=== PATIENT | female | born 1985 | race African-American/Black ===

== ENCOUNTER 2018-06-22 18:02 | Observation (INO) | payer BC ==
--- NOTE | 2018-06-22 18:19 | PDOC ---
Rapid Medical Evaluation Chief Complaint: Vaginal Bleeding Time Seen by Provider: 06/22/18 18:05 Medical Evaluation: Allergies Allergy/AdvReac Type Severity Reaction Status Date / Time No Known Allergies Allergy Verified 06/22/18 18:16 06/22/18 18:18 Pt c/o: heavy vag bleeding since last evening, hx fibroids, recent d& c 6 weeks ago. Has not had menses since procedure pt on brief exam: BRB on sanitary napkin, vss pt ordered for: labs, iv, urine pt to proceed to the ED Discharge Disposition - Diagnosis Vagina bleeding - Referrals - Patient Instructions - Post Discharge Activity
[2018-06-22 19:34] LABS: BASO % 0.4 % (0-2.0); EOS % 1.2 % (0-4.5); HEMATOCRIT 24.4 % (32.4-45.2); HEMOGLOBIN 8.5 GM/dL (10.7-15.3); LYMPH % 39.9 % (8-40); MCH 28.8 pg (25.7-33.7); MCHC 34.7 g/dl (32.0-36.0); MEAN CELL VOLUME 83.1 fl (80-96); MEAN PLT VOLUME 7.4 fl (7.5-11.1); MONO % 5.7 % (3.8-10.2); NEUT % 52.8 % (42.8-82.8); PLATELET COUNT 332 K/MM3 (134-434); RBC 2.94 M/mm3 (3.60-5.2); WHITE BLOOD COUNT 7.9 K/mm3 (4.0-10.0)
[2018-06-22] MEDS ORDERED: SODIUM CHLORIDE 1,000 ML IV STA (21:13)
--- NOTE | 2018-06-22 21:39 | PDOC ---
History of Present Illness - General History Source: Patient Exam Limitations: No Limitations - History of Present Illness Initial Comments: 06/22/18 21:41 The patient is a 33 year old female with a history of fibroids who presents to the emergency department for evaluation of vaginal bleeding. Patient reports profuse vaginal bleeding with associated dizziness since 2pm today. She reports going through 2 diapers with clots. Patient had DNC on due to fetus having heart problems. She states she followed with Dr. Curry on 06/13 in regards to history of fibroids. Patient states she is scheduled to have surgery in June for fibroids. The patient denies chest pain, shortness of breath, headache, fevers, and chills. Allergies: No known allergies. Social History: No reported alcohol, cigarette, or drug use. 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 <Jessica Upton - Last Filed: 06/23/18 00:32> <Alba Reyes - Last Filed: 06/23/18 00:56> - General Chief Complaint: Vaginal Bleeding Stated Complaint: Vaginal Bleeding Time Seen by Provider: 06/22/18 18:05 Past History <Jessica Upton - Last Filed: 06/23/18 00:32> - Past Medical History COPD: No HTN: No Other medical history: FIBROIDS - Immunization History Immunization Up to Date: Yes - Suicide/Smoking/Psychosocial Hx Smoking History: Never smoked Hx Alcohol Use: No Drug/Substance Use Hx: No Substance Use Type: None <Alba Reyes - Last Filed: 06/23/18 00:56> - Past Medical History Allergies/Adverse Reactions: Allergies Allergy/AdvReac Type Severity Reaction Status Date / Time No Known Allergies Allergy Verified 06/22/18 18:16 Home Medications: Ambulatory Orders NK [No Known Home Medication] 06/18/16 Review of Systems - Review of Systems Able to Perform ROS?: Yes Comments:: CONSTITUTIONAL: Absent: fever, no chills, no fatigue EYES: Absent: visual changes ENT: Absent: ear pain, no sore throat CARDIOVASCULAR: Absent: chest pain, no palpitations RESPIRATORY: Absent: cough, no SOB GI: Absent: (+)cramping abdominal pain. (+)nausea. (+)vomiting. no constipation, no diarrhea GENITOURINARY: (+)vaginal bleeding Absent: dysuria, no frequency, no hematuria MUSKULOSKELETAL: Absent: back pain, no arthralgia, no myalgia SKIN: Absent: rash NEURO: +dizziness Absent: headache <Jessica Upton - Last Filed: 06/23/18 00:32> *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 - Vital Signs Last Vital Signs Temp Pulse Resp BP Pulse Ox 98.5 F 105 H 16 144/92 100 06/22/18 18:16 06/22/18 18:16 06/22/18 18:16 06/22/18 18:16 06/22/18 18:16 - 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 Comments: GENERAL: Well developed, well nourished. Awake and alert. No acute distress. HEENT: Normocephalic, atraumatic. PERRLA, EOMI. No conjunctival pallor. Sclera are non- icteric. Moist mucous membranes. CARDIOVASCULAR: (+)Tachycardic. No murmurs, rubs, or gallops. Distal pulses are 2+ and symmetric. PULMONARY: No evidence of respiratory distress. Lungs clear to auscultation bilaterally. No wheezing, rales or rhonchi. ABDOMINAL: Soft. Flat. Non-tender. Pelvic: (+)heavy vaginal bleeding with large clots. MUSCULOSKELETAL Normal range of motion at all joints. No bony deformities or tenderness. No CVA tenderness. EXTREMITIES: No cyanosis. No clubbing. No edema. No calf tenderness. SKIN: Warm and dry. Normal capillary refill. No rashes. No jaundice. NEUROLOGICAL: Alert, awake, appropriate. Cranial nerves 2-12 intact. No deficits to light touch and temperature in face, upper extremities and lower extremities. No motor deficits in the in face, upper extremities and lower extremities. PSYCHIATRIC: Cooperative. Good eye contact. Appropriate mood and affect. <Jessica Upton - Last Filed: 06/23/18 00:32> - Vital Signs Last Vital Signs Temp Pulse Resp BP Pulse Ox 98.5 F 105 H 16 144/92 100 06/22/18 18:16 06/22/18 18:16 06/22/18 18:16 06/22/18 18:16 06/22/18 18:16 <Alba Reyes - Last Filed: 06/23/18 00:56> ED Treatment Course - LABORATORY CBC & Chemistry Diagram: 06/22/18 23:34 06/22/18 23:34 - ADDITIONAL ORDERS Additional order review: Laboratory Results 06/22/18 19:20 Blood Type O POSITIVE Antibody Screen Negative 06/22/18 19:20 RBC 2.94 L MCV 83.1 MCHC 34.7 RDW 15.0 D MPV 7.4 L D Neutrophils % 52.8 D Lymphocytes % 39.9 D Monocytes % 5.7 Eosinophils % 1.2 Basophils % 0.4 <Jessica Upton - Last Filed: 06/23/18 00:32> - LABORATORY CBC & Chemistry Diagram: 06/22/18 23:34 06/22/18 23:34 - ADDITIONAL ORDERS Additional order review: Laboratory Results 06/22/18 19:20 Blood Type O POSITIVE Antibody Screen Negative 06/22/18 19:20 RBC 2.94 L MCV 83.1 MCHC 34.7 RDW 15.0 D MPV 7.4 L D Neutrophils % 52.8 D Lymphocytes % 39.9 D Monocytes % 5.7 Eosinophils % 1.2 Basophils % 0.4 <Alba Reyes - Last Filed: 06/23/18 00:56> Medical Decision Making - Medical Decision Making 06/23/[address] Garcia at 00:32. <Jessica Upton - Last Filed: 06/23/18 00:32> - Medical Decision Making 06/23/18 00:51 Patient is feeling better. The patient has had two diaper changes, but she is now stable with no significant vaginal bleeding at this moment Orthostatics were done and supine her pulse was 87, and her blood pressure was 119/84. Vital signs seated . The pulse is 100 and her blood pressure is 120/97 Patient has had no further vomiting. repeat cbc shows hbg= 7 and hct=21 We'll transfuse patient with packed RBCs and admit MedSurg. Dr. Garcia will see the pt in the morning <Alba Reyes - Last Filed: 06/23/18 00:56> *DC/Admit/Observation/Transfer - Attestations Scribe Attestion: Documentation prepared by Jessica Upton, acting as rn medical inpatient services for Alba Reyes MD. <Jessica Upton - Last Filed: 06/23/18 00:32> - Discharge Dispostion Decision to Admit order: Yes <Alba Reyes - Last Filed: 06/23/18 00:56> Diagnosis at time of Disposition: Fibroids, submucosal, Metrorrhagia Anemia Qualifiers: Anemia type: other cause Other causes of anemia: other cause, not classified Qualified Code(s): D64.89 - Other specified anemias
[2018-06-22 23:42] LABS: BASO % 0.3 % (0-2.0); EOS % 0.8 % (0-4.5); HEMATOCRIT 21.3 % (32.4-45.2); HEMOGLOBIN 7.4 GM/dL (10.7-15.3); LYMPH % 27.7 % (8-40); MCHC 34.6 g/dl (32.0-36.0); MEAN CELL VOLUME 83.7 fl (80-96); MEAN PLT VOLUME 7.7 fl (7.5-11.1); MONO % 5.3 % (3.8-10.2); NEUT % 65.9 % (42.8-82.8); PLATELET COUNT 273 K/MM3 (134-434); RBC 2.55 M/mm3 (3.60-5.2); RDW 14.8 % (11.6-15.6); WHITE BLOOD COUNT 7.5 K/mm3 (4.0-10.0)
[2018-06-23 00:17] LABS: ALBUMIN 2.8 g/dl (3.4-5.0); ALK PHOS 67 U/L (45-117); ANION GAP 7 MMOL/L (8-16); BILIRUBIN,TOTAL 0.2 mg/dL (0.2-1); BLOOD UREA NITROGEN 24 mg/dL (7-18); CALCIUM 8.4 mg/dL (8.5-10.1); CHLORIDE 111 mmol/L (98-107); CO2 23 mmol/L (21-32); CREATININE 1.1 mg/dL (0.55-1.3); GLUCOSE,RANDOM 88 mg/dL (74-106); POTASSIUM 3.9 mmol/L (3.5-5.1); SGOT/AST 13 U/L (15-37); SGPT/ALT 11 U/L (13-61); SODIUM 140 mmol/L (136-145); TOT PROT 6.4 g/dl (6.4-8.2)
--- NOTE | 2018-06-23 02:32 | HP ---
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 Tachycardic to 105 on presentation, received 1L NS bolus in ED. T&S and 2U PRBCs ordered in ED. Pt reports elective hysterectomy scheduled for June. OBGYN department will evaluate in AM and pursue outpatient surgery. ER course was notable for: (1) Hb 7.4 (2) (3) Recent Travel: PAST MEDICAL HISTORY: As per HPI PAST SURGICAL HISTORY: As per HPI Social History: Smoking: none Alcohol: none Drugs: none Family History: Allergies No Known Allergies Allergy (Verified 06/22/18 18:16) HOME MEDICATIONS: Home Medications Medication Instructions Recorded NK [No Known Home Medication] 06/18/16 REVIEW OF SYSTEMS As per HPI PHYSICAL EXAMINATION Vital Signs - 24 hr 06/22/18 06/22/18 06/23/18 18:16 21:40 01:38 Temperature 98.5 F 99 F Pulse Rate 105 H Pulse Rate [ 82 Apical] Pulse Rate [ 100 H Sitting] Pulse Rate [ 87 Supine] Respiratory 16 18 Rate Blood Pressure 144/92 Blood Pressure 113/75 [Right Arm] Blood Pressure 120/97 [Sitting] Blood Pressure 119/84 [Supine] O2 Sat by Pulse 100 100 Oximetry (%) 06/23/18 06/23/18 01:58 02:13 Temperature 99 F 99 F Pulse Rate Pulse Rate [ 80 78 Apical] Pulse Rate [ Sitting] Pulse Rate [ Supine] Respiratory 18 18 Rate Blood Pressure Blood Pressure 110/68 112/72 [Right Arm] Blood Pressure [Sitting] Blood Pressure [Supine] O2 Sat by Pulse 100 100 Oximetry (%) GENERAL: A&O x 3, NAD HEAD: NC/AT EYES: PERRLA, EOMI EARS, NOSE, THROAT: MMM NECK: Normal range of motion, supple without lymphadenopathy, JVD, or masses. LUNGS: CTA b/l HEART: RRR no m/r/g ABDOMEN: +bs, soft, TTP in LLQ MUSCULOSKELETAL: Normal range of motion at all joints. No bony deformities or tenderness. No CVA tenderness. UPPER EXTREMITIES: 2+ pulses, warm, well-perfused. No cyanosis. No clubbing. No peripheral edema. LOWER EXTREMITIES: 2+ pulses, warm, well-perfused. No calf tenderness. No peripheral edema. NEUROLOGICAL: pitch gatherer, motor, sensory systems w/o focal deficits PSYCHIATRIC: Cooperative. Good eye contact. Appropriate mood and affect. SKIN: Warm, dry, normal turgor, no rashes or lesions noted, normal capillary refill. Laboratory Results - last 24 hr 06/22/18 06/22/18 06/22/18 19:20 19:20 23:34 WBC 7.9 RBC 2.94 L Hgb 8.5 L Hct 24.4 L D MCV 83.1 MCH 28.8 D MCHC 34.7 RDW 15.0 D Plt Count 332 D MPV 7.4 L D Absolute Neuts (auto) 4.1 Neutrophils % 52.8 D Lymphocytes % 39.9 D Monocytes % 5.7 Eosinophils % 1.2 Basophils % 0.4 Nucleated RBC % 0 Sodium Potassium Chloride Carbon Dioxide Anion Gap BUN Creatinine Creat Clearance w eGFR Random Glucose Calcium Total Bilirubin AST ALT Alkaline Phosphatase Total Protein Albumin Serum , Qual Negative Blood Type O POSITIVE Antibody Screen Negative Crossmatch 06/22/18 06/22/18 06/22/18 23:34 23:34 23:34 WBC 7.5 RBC 2.55 L Hgb 7.4 L Hct 21.3 L MCV 83.7 MCH 29.0 MCHC 34.6 RDW 14.8 Plt Count 273 MPV 7.7 Absolute Neuts (auto) 4.9 Neutrophils % 65.9 D Lymphocytes % 27.7 D Monocytes % 5.3 Eosinophils % 0.8 Basophils % 0.3 Nucleated RBC % 0 Sodium 140 Potassium 3.9 Chloride 111 H Carbon Dioxide 23 Anion Gap 7 L BUN 24 H Creatinine 1.1 Creat Clearance w eGFR 56.52 Random Glucose 88 Calcium 8.4 L Total Bilirubin 0.2 AST 13 L ALT 11 L Alkaline Phosphatase 67 Total Protein 6.4 Albumin 2.8 L Serum , Qual Blood Type O POSITIVE Antibody Screen Negative Crossmatch See Detail ASSESSMENT/PLAN: 33 y/o F w/ PMHx fibroids, 6 weeks s/p D&C, p/w heavy vaginal bleeding and symptomatic anemia #anemia -given time since D&C, unlikely to be related to procedure, most likely fibroid bleeding -definitive treatment is hysterectomy, to be performed outpatient per OBGYN -PRBC transfusion had started before labs for anemia w/u could be obtained, therefore retics/iron studies would be unrevealing at this time -PT/PTT/INR ordered -CBC q8h #FEN -no IVF -monitor and replete lytes as needed -regular diet #PPx -DVT: SCDs, no pharmacologic AC given active bleeding -GI: not indicated #code -full #dispo -admit to obs Visit type - Emergency Visit Emergency Visit: Yes ED Registration Date: 06/23/18 Care time: The patient presented to the Emergency Department on the above date and was hospitalized for further evaluation of their emergent condition. - New Patient This patient is new to me today: Yes Date on this admission: 06/23/18 - Critical Care Critical Care patient: No
--- NOTE | 2018-06-23 03:11 | PN ---
Teaching Attending Note Name of Resident: Dar Jones ATTENDING PHYSICIAN STATEMENT I saw and evaluated the patient. I reviewed the resident's note and discussed the case with the resident. I agree with the resident's findings and plan as documented. SUBJECTIVE: Seen and examined; please see resident note for further documentation. She is a 33 y/o AAF with no PMH aside from known fibroids who is several weeks s/p DNC due to anatomical issues with fetus who scheduled for OP hysterectomy 2/2 fibroids in june presenting with 1 day of vaginal bleeding with clots. Started at 2AM. Severe in nature, not made better or worse by anything. Hb mid -7s in the ER. In the ER OBGYN requested admission to medicine and she was started on a transfusion. She is doing well and is afebrile and hemodynamically stable though did have a significant increase in her HR from 80s to 100s from sitting to standing. She was already started on the transfusion before medicine was called thus we cannot obtain reliable anemia workup. 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 10 sys ROS done and negative aside from HPI PMH and PSH reviewed FH asked and noncontributory Medications reviewed Socially denies tobacco or drug abuse OBJECTIVE: VS, labs, imaging reviewed NAD, resting in bed in US suite RRR s1/2 no mgr Mild tenderness over suprapubic region around uterus, ND +BS CN2-12 wnl, no fnd Normal mood, euthymic affect Labs show Hb 7.6 that is normocytic, chemistry unremarkable, LFTs unremarkable. US pending ASSESSMENT AND PLAN: Mrs. Sheridan presents with dysfunctional uterine bleeding with a Hb of 7.6 1) Dysfunctional Uterine Bleed -Management per OBGYN; followup US. Admit to med surg -Trend Hb; was given 1 unit in ER. Would hold off on further transfusion with a goal to keep >7. -OP iron studies 2) Fibroids -Management per OBGYN; will likely need hysterectomy. 3) Hypoalbuminemia -Consider checking prealbumin; followup OP. May benefit from nutritional supplementation. Full Code
[2018-06-23 04:15] VITALS: BMI 22.4
--- NOTE | 2018-06-23 07:02 | CON.OBG ---
Consult Consult Specialty:: Gynecology Referred by:: Dr. Mata Reason for Consultation:: 33yo P0 Presented to ER with heavy vaginal bleeding - History of Present Illness Chief Complaint: Heavy vaginal bleeding, decreased H/H, diziness History of Present Illness: She had 2nd trimester TOP @ [facility] due to Trisomy 21, cardiac anomaly; she has h/o fibroid uterus, fibroid increased in size during recent ; Fibroid has submucosal component - History Source History Provided By: Patient Limitations to Obtaining History: No Limitations - Past Medical History ...LMP: 01/09/18 ...: (unknown, pt denies preg testing) Additional Medical History: Pheochromocytoma - Past Surgical History Additional Surgical History: 01/2018 - Adrenal tumor resection - Pheochromocytoma - Alcohol/Substance Use Hx Alcohol Use: No History of Substance Use: reports: None - Smoking History Smoking history: Never smoked Have you smoked in the past 12 months: No - Social History Usual Living Arrangement: With Significant Other 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) History of Recent Travel: No Home Medications - Allergies Allergies/Adverse Reactions: Allergies Allergy/AdvReac Type Severity Reaction Status Date / Time No Known Allergies Allergy Verified 06/22/18 18:16 - Home Medications Home Medications: Ambulatory Orders NK [No Known Home Medication] 06/18/16 Review of Systems - Review of Systems Constitutional: reports: Weakness HENT: reports: No Symptoms Neck: reports: No Symptoms Cardiovascular: reports: No Symptoms Respiratory: reports: No Symptoms Gastrointestinal: reports: No Symptoms Genitourinary: reports: No Symptoms Breasts: reports: No Symptoms Reported Musculoskeletal: reports: No Symptoms Integumentary: reports: No Symptoms Neurological: reports: No Symptoms Endocrine: reports: No Symptoms Hematology/Lymphatic: reports: No Symptoms Psychiatric: reports: No Symptoms 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-MEDIA STRATEGIST Vital Signs: Vital Signs Temperature 99 F 06/23/18 02:13 Pulse Rate 78 06/23/18 02:13 Respiratory Rate 18 06/23/18 03:00 Blood Pressure 112/72 06/23/18 02:13 O2 Sat by Pulse Oximetry (%) 100 06/23/18 03:00 Constitutional: Yes: Well Nourished, No Distress, Calm HENT: Yes: WNL, Atraumatic, Normocephalic Neck: Yes: WNL, Supple, Trachea Midline Cardiovascular: Yes: WNL, Regular Rate and Rhythm Respiratory: Yes: WNL, Regular, CTA Bilaterally Gastrointestinal: Yes: WNL, Normal Bowel Sounds, Soft Pelvis: Yes: WNL External Genitalia: Yes: Normal Vaginal Exam: Yes: Normal, Other (minimal bleeding currently) Cervix: Yes: Normal Uterus: Yes: Enlarged Breast(s): Yes: WNL Musculoskeletal: Yes: WNL Extremities: Yes: WNL Integumentary: Yes: WNL Neurological: Yes: WNL, Alert, Oriented ...Motor Strength: WNL Psychiatric: Yes: WNL, Alert, Oriented Labs: CBC, BMP 06/22/18 23:34 06/22/18 23:34 Assessment/Plan 33yo [id number] with 8cm fundal fibroid with submucosal component recent TOP for anomalous fetus, currently likely menstruating, with significant drop H/H Admited for PRBC transfusion, currently bleeding subsided, stable will plan myomectmy, prior to next period, while blood count is still high Myomectomy discussed with patient, she will schedule
[2018-06-23 09:38] LABS: HCG,QUALITATIVE URINE Negative
[2018-06-23 09:39] LABS: URINE APPEARANCE CLEAR; URINE BILIRUBIN NEGATIVE (<2.0 mg/dL); URINE COLOR YELLOW; URINE GLUCOSE (UA) NEGATIVE (NEGATIVE); URINE KETONE NEGATIVE (NEGATIVE); URINE LEUK ESTERASE TRACE (NEGATIVE); URINE NITRITE NEGATIVE (NEGATIVE); URINE PROTEIN NEGATIVE (NEGATIVE); URINE UROBILINOGEN NEGATIVE mg/dL (0.2-1.0)
[2018-06-23 09:41] LABS: EPI CELLS RARE /HPF (FEW); URINE MUCUS RARE
[2018-06-23 09:43] LABS: HEMATOCRIT 26.5 % (32.4-45.2); HEMOGLOBIN 9.2 GM/dL (10.7-15.3); MCHC 34.5 g/dl (32.0-36.0); MEAN CELL VOLUME 83.9 fl (80-96); MEAN PLT VOLUME 7.8 fl (7.5-11.1); PLATELET COUNT 294 K/MM3 (134-434); RBC 3.16 M/mm3 (3.60-5.2); RDW 14.5 % (11.6-15.6); WHITE BLOOD COUNT 8.6 K/mm3 (4.0-10.0)
[2018-06-23 09:58] LABS: INR 1.13 (0.83-1.09); PROTHROMBIN TIME (PATIENT) 13.3 SEC (9.7-13.0)
[2018-06-23 10:21] LABS: ANION GAP 8 MMOL/L (8-16); BLOOD UREA NITROGEN 21 mg/dL (7-18); CALCIUM 8.5 mg/dL (8.5-10.1); CHLORIDE 108 mmol/L (98-107); CO2 23 mmol/L (21-32); CREATININE 1.1 mg/dL (0.55-1.3); GLUCOSE,RANDOM 96 mg/dL (74-106); POTASSIUM 3.8 mmol/L (3.5-5.1); SODIUM 139 mmol/L (136-145)
--- NOTE | 2018-06-23 13:46 | PN ---
Teaching Attending Note Name of Resident: Dina Ray ATTENDING PHYSICIAN STATEMENT I saw and evaluated the patient. I reviewed the resident's note and discussed the case with the resident. I agree with the resident's findings and plan as documented. SUBJECTIVE:asymptomatic. states bleeding has slowed down. changing pad only 1x for today so far. denies CP, SOB, fever, chills, N/V/C/D OBJECTIVE: Last Vital Signs Temp Pulse Resp BP Pulse Ox 98.2 F 80 18 128/78 100 06/23/18 06:00 06/23/18 10:00 06/23/18 10:00 06/23/18 10:00 06/23/18 10:00 General NAD abdomen soft NT/ND ASSESSMENT AND PLAN: 33yo F with PMH fibroid uterus presented to the ER with heavy vaginal bleeding with clots 1. Dyfunctional uterine bleeding- due to fibroids. will need myomectomy as outpatient. 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 Acute blood loss anemia- due to vaginal bleeding. s/p 1 unit PRBC with good response. bleeding has slowed down. was told beginning of the month she was also iron def and started on iron supplements. encouraged patient to f/u with PMD later this week for CBC check. encouraged to return to ER for symptoms or worsening vaginal bleeding
--- NOTE | 2018-06-23 15:01 | DS ---
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: SUBJECTIVE: Patient seen and examined at bedside. patient is no longer experiencing any bleeding episdoes jsut slight spotting no more clots being passed. she denies any chets pain, shortness of breath. headaches or dizziness OBJECTIVE: Vital Signs Period Temp Pulse Resp BP Sys/Gustafson Pulse Ox Last 24 Hr 98.1 F-99 F 69-105 16-18 110-144/68-97 100-100 PHYSICAL EXAM GENERAL: The patient is awake, alert, and fully oriented, in no acute distress. EYES: no scleral icterus no pallor NECK: no JVD no lymphadenopathy . LUNGS:CTA B/L; no rales, rhonchi or wheezing HEART: Regular rate and rhythm, S1, S2 without murmur, rub or gallop. ABDOMEN: Soft, nontender, nondistended, normoactive bowel sounds, no guarding, no rebound, no hepatosplenomegaly, no masses. EXTREMITIES: 2+ pulses, warm, well-perfused, no edema. SKIN: Warm, dry, normal turgor, no rashes or lesions noted. LABS Laboratory Results - last 24 hr 06/22/18 06/22/18 06/22/18 19:20 19:20 23:34 WBC 7.9 RBC 2.94 L Hgb 8.5 L Hct 24.4 L D MCV 83.1 MCH 28.8 D MCHC 34.7 RDW 15.0 D Plt Count 332 D MPV 7.4 L D Absolute Neuts (auto) 4.1 Neutrophils % 52.8 D Lymphocytes % 39.9 D Monocytes % 5.7 Eosinophils % 1.2 Basophils % 0.4 Nucleated RBC % 0 PT with INR INR PTT (Actin FS) Sodium Potassium Chloride Carbon Dioxide Anion Gap BUN Creatinine Creat Clearance w eGFR Random Glucose Calcium Total Bilirubin AST ALT Alkaline Phosphatase Total Protein Albumin Serum , Qual Negative Urine Color Urine Appearance Urine pH Ur Specific [place] Urine Protein Urine Glucose (UA) Urine Ketones Urine Blood Urine Nitrite Urine Bilirubin Urine Urobilinogen Ur Leukocyte Esterase Urine WBC (Auto) Urine RBC (Auto) Ur Epithelial Cells Urine Mucus Urine HCG, Qual Blood Type O POSITIVE Antibody Screen Negative Crossmatch 06/22/18 06/22/18 06/22/18 23:34 23:34 23:34 WBC 7.5 RBC 2.55 L Hgb 7.4 L Hct 21.3 L MCV 83.7 MCH 29.0 MCHC 34.6 RDW 14.8 Plt Count 273 MPV 7.7 Absolute Neuts (auto) 4.9 Neutrophils % 65.9 D Lymphocytes % 27.7 D Monocytes % 5.3 Eosinophils % 0.8 Basophils % 0.3 Nucleated RBC % 0 PT with INR INR PTT (Actin FS) Sodium 140 Potassium 3.9 Chloride 111 H Carbon Dioxide 23 Anion Gap 7 L BUN 24 H Creatinine 1.1 Creat Clearance w eGFR 56.52 Random Glucose 88 Calcium 8.4 L Total Bilirubin 0.2 AST 13 L ALT 11 L Alkaline Phosphatase 67 Total Protein 6.4 Albumin 2.8 L Serum , Qual Urine Color Urine Appearance Urine pH Ur Specific [place] Urine Protein Urine Glucose (UA) Urine Ketones Urine Blood Urine Nitrite Urine Bilirubin Urine Urobilinogen Ur Leukocyte Esterase Urine WBC (Auto) Urine RBC (Auto) Ur Epithelial Cells Urine Mucus Urine HCG, Qual Blood Type O POSITIVE Antibody Screen Negative Crossmatch See Detail 06/23/18 06/23/18 06/23/18 07:50 09:30 09:30 WBC 8.6 RBC 3.16 L Hgb 9.2 L Hct 26.5 L D MCV 83.9 MCH 29.0 MCHC 34.5 RDW 14.5 Plt Count 294 MPV 7.8 Absolute Neuts (auto) Neutrophils % Lymphocytes % Monocytes % Eosinophils % Basophils % Nucleated RBC % PT with INR INR PTT (Actin FS) Sodium 139 Potassium 3.8 Chloride 108 H Carbon Dioxide 23 Anion Gap 8 BUN 21 H Creatinine 1.1 Creat Clearance w eGFR 56.52 Random Glucose 96 Calcium 8.5 Total Bilirubin AST ALT Alkaline Phosphatase Total Protein Albumin Serum , Qual Urine Color Yellow Urine Appearance Clear Urine pH 5.0 D Ur Specific [place] 1.020 Urine Protein Negative Urine Glucose (UA) Negative Urine Ketones Negative Urine Blood 3+ H Urine Nitrite Negative Urine Bilirubin Negative Urine Urobilinogen Negative Ur Leukocyte Esterase Trace Urine WBC (Auto) 15 Urine RBC (Auto) 62 Ur Epithelial Cells Rare Urine Mucus Rare Urine HCG, Qual Negative Blood Type Antibody Screen Crossmatch 06/23/18 09:30 WBC RBC Hgb Hct MCV MCH MCHC RDW Plt Count MPV Absolute Neuts (auto) Neutrophils % Lymphocytes % Monocytes % Eosinophils % Basophils % Nucleated RBC % PT with INR 13.30 H INR 1.13 H PTT (Actin FS) 26.0 Sodium Potassium Chloride Carbon Dioxide Anion Gap BUN Creatinine Creat Clearance w eGFR Random Glucose Calcium Total Bilirubin AST ALT Alkaline Phosphatase Total Protein Albumin Serum , Qual Urine Color Urine Appearance Urine pH Ur Specific [place] Urine Protein Urine Glucose (UA) Urine Ketones Urine Blood Urine Nitrite Urine Bilirubin Urine Urobilinogen Ur Leukocyte Esterase Urine WBC (Auto) Urine RBC (Auto) Ur Epithelial Cells Urine Mucus Urine HCG, Qual Blood Type Antibody Screen Crossmatch HOSPITAL COURSE: Date of Admission:06/23/18 33 y/o female with PMH of fibroids, s/p d and c 6 weeks ago, presents to the ED with vaginal bleeding and spotting since 2 am. patient states that this is her first real period since having her d and c. on arrival her Hgb was 8.4 then dropped to 7.4 so she received 1 unit of PRBCS. a bladder u/s was done which showed a large fibroid uterus. repeta CBC after the transfusion was 9.2. patient was seen by OBGYN who suggested her to f/u as an outpatient and that she will need a myomectomy procedure. patient was discharged with strict follow up. Date of Discharge: 06/23/18 Minutes to complete discharge: 39 Discharge Summary Reason For Visit: ANEMIA METRORRHAGIA Current Active Problems Anemia (Acute) Fibroids, submucosal (Acute) Metrorrhagia (Acute) Condition: Stable - Instructions Diet, Activity, Other Instructions: You were in the hospital because of vaginal bleeding. Your blood counts were low and you received 1 unit of blood. You should follow up with your primary care doctor in 1 week to repeat your blood counts to ensure they are stable. You need to follow up with your VOCATIONAL TRAINING TEACHER. You will be scheduled for an out patient procedure called a myomectomy. You can see Dr. Curry or Dr. Covarrubias. You can resume your home medications as before. Do not take Ibuprofen, Advil or other NSAIDs. If you experience any bleeding, dizziness, shortness of breath please call your doctor or return to the emergency department. Referrals: Elsy Covarrubias MD [Staff Physician] - 1 Week Magdiel Lieberman MD [Staff Physician] - 1 Week Disposition: HOME - Home Medications Comprehensive Discharge Medication List: Ambulatory Orders NK [No Known Home Medication] 06/18/16 Problem List - Problems (1) Anemia Code(s): D64.9 - ANEMIA, UNSPECIFIED Qualifiers: Anemia type: other cause Other causes of anemia: other cause, not classified Qualified Code(s): D64.89 - Other specified anemias (2) Fibroids, submucosal Code(s): D25.0 - SUBMUCOUS LEIOMYOMA OF UTERUS (3) Metrorrhagia Code(s): N92.1 - EXCESSIVE AND FREQUENT MENSTRUATION WITH IRREGULAR CYCLE This patient is new to me today: Yes Date on this admission: 06/23/18 Emergency Visit: Yes ED Registration Date: 06/23/18 Care time: The patient presented to the Emergency Department on the above date and was hospitalized for further evaluation of their emergent condition. Critical Care patient: No - Discharge Referral Referred to [facility] No
[2018-06-24 00:10] VITALS: BP 139/87; PULSE 90; TEMP 98.8
== END 2018-06-23 21:15 | disposition home or self-care (01) ==
LOC: JER 18:02 → JERBED 06-23 00:56 → UNDOADMOB 06-23 01:01 → JERBED 06-23 01:01 → J5S 06-23 03:05
PROVIDERS: ADMIT Internal Medicine; ATTEND Internal Medicine
PROC: 30233N1 Transfusion of Nonautologous Red Blood Cells into Peripheral Vein, Percutaneous Approach (ICD-10-PCS; principal; 2018-06-23)
PROC: 3E0337Z Introduction of Electrolytic and Water Balance Substance into Peripheral Vein, Percutaneous Approach (ICD-10-PCS; 2018-06-23)
DX: D64.89 Other specified anemias (principal); D25.0 Submucous leiomyoma of uterus; N92.1 Excessive and frequent menstruation with irregular cycle; N93.8 Other specified abnormal uterine and vaginal bleeding; E88.09 Other disorders of plasma-protein metabolism, not elsewhere classified; Z87.59 Personal history of other complications of pregnancy, childbirth and the puerperium
CPT/HCPCS: 36415; 36430; 36511; 76856-TC; 80048; 80053; 81003; 81015; 84703; 85025; 85027; 85610; 85730; 86850; 86900; 86901; 86922; 87086; 99285-25; G0378; J7030; P9038; P9058

== ENCOUNTER 2018-06-24 01:05 | Inpatient (IN) | payer BC ==
[2018-06-24] MEDS ORDERED: SODIUM CHLORIDE 0.9% 1000 ML INFUS.BAG IV ONE (02:30)
--- NOTE | 2018-06-24 02:55 | PDOC ---
History of Present Illness - General History Source: Patient Exam Limitations: No Limitations - History of Present Illness Initial Comments: 06/24/18 03:22 The patient is a 33 year old female with a past medical history of fibroid uterus, s/p d &C / for anomaly done 6 weeks ago here following discharge from this hospital 4hrs ago for vaginal bleeding. The patient was initially admitted for menorrhagia. Patient required transfusion during her admission. Patient noticed significant blood clots when she arrived home prompting her to return to the ER. <Laina Narvaez - Last Filed: 06/24/18 03:28> - General History Source: Patient Exam Limitations: No Limitations <Corrine Li - Last Filed: 06/24/18 04:57> - General Chief Complaint: Blood Transfusion Stated Complaint: BLOODCLOT Past History <Laina Narvaez - Last Filed: 06/24/18 03:28> - Past Medical History COPD: No HTN: Yes - Immunization History Immunization Up to Date: Yes - Suicide/Smoking/Psychosocial Hx Smoking History: Never smoked Have you smoked in the past 12 months: No Information on smoking cessation initiated: No Hx Alcohol Use: No Drug/Substance Use Hx: No Substance Use Type: None <Corrine Li - Last Filed: 06/24/18 04:57> - Past Medical History Allergies/Adverse Reactions: Allergies Allergy/AdvReac Type Severity Reaction Status Date / Time No Known Allergies Allergy Verified 06/24/18 02:08 Home Medications: Ambulatory Orders NK [No Known Home Medication] 06/18/16 Review of Systems - Review of Systems Able to Perform ROS?: Yes Comments:: 06/24/18 03:28 ADULT ROS GENERAL/CONSTITUTIONAL: No fever or chills. No weakness. HEAD, EYES, EARS, NOSE AND THROAT: No change in vision. No ear pain or discharge. No sore throat. CARDIOVASCULAR: No chest pain or shortness of breath. RESPIRATORY: No cough, wheezing, or hemoptysis. GASTROINTESTINAL: No nausea, vomiting, diarrhea or constipation. GENITOURINARY: No dysuria, frequency, or change in urination. (+) Vaginal bleeding. MUSCULOSKELETAL: No joint or muscle swelling or pain. No neck or back pain. SKIN: No rash NEUROLOGIC: No headache, vertigo, loss of consciousness, or change in strength/ sensation. ENDOCRINE: No increased thirst. No abnormal weight change. HEMATOLOGIC/LYMPHATIC: No anemia, easy bleeding, or history of blood clots. ALLERGIC/IMMUNOLOGIC: No hives or skin allergy. <Laina Narvaez - Last Filed: 06/24/18 03:28> *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 - Vital Signs Last Vital Signs Temp Pulse Resp BP Pulse Ox 99.1 F 119 H 22 H 122/85 100 06/24/18 01:05 06/24/18 01:05 06/24/18 01:05 06/24/18 01:05 06/24/18 01:05 - 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 Comments: 06/24/18 03:28 on exam pt awake alert lungs clear bilaterally heart reg tachycardia. abd soft mild suprapubic ttp. pelvic with vaginal clotting and pooling in vagina. .ext wwp. no edema. <Laina Narvaez - Last Filed: 06/24/18 03:28> - Vital Signs Last Vital Signs Temp Pulse Resp BP Pulse Ox 99.1 F 119 H 22 H 122/85 100 06/24/18 01:05 06/24/18 01:05 06/24/18 01:05 06/24/18 01:05 06/24/18 01:05 <Corrine Li - Last Filed: 06/24/18 04:57> Moderate Sedation - Procedure Monitoring Vital Signs: Procedure Monitoring Vital Signs Temperature 99.1 F 06/24/18 01:05 Pulse Rate 119 H 06/24/18 01:05 Respiratory Rate 22 H 06/24/18 01:05 Blood Pressure 122/85 06/24/18 01:05 O2 Sat by Pulse Oximetry (%) 100 06/24/18 01:05 <Laina Narvaez - Last Filed: 06/24/18 03:28> - Procedure Monitoring Vital Signs: Procedure Monitoring Vital Signs Temperature 99.1 F 06/24/18 01:05 Pulse Rate 119 H 06/24/18 01:05 Respiratory Rate 22 H 06/24/18 01:05 Blood Pressure 122/85 06/24/18 01:05 O2 Sat by Pulse Oximetry (%) 100 06/24/18 01:05 <Corrine Li - Last Filed: 06/24/18 04:57> ED Treatment Course - LABORATORY CBC & Chemistry Diagram: 06/24/18 03:25 06/24/18 03:25 <Corrine Li - Last Filed: 06/24/18 04:57> Medical Decision Making - Medical Decision Making 06/24/18 02:50 33 yo F with h/o fibroid uterus, s/p d &C / for anomaly done at [facility] 6 weeks ago here s/p dc from hospital 4hrs ago for vaginal bleedign. the patient was admitted for menorrhagia requiring transfusion. was given 2 units, post transfusion cbc was 9, on arrival to home pt had large vaginal bleeding with clotting. no f/c does have abdominal cramping. is wearing a diaper. on exam pt awake alert lungs clear bilaterally heart reg tachycardia. abd soft mild suprapubic ttp. pelvic with vaginal clotting and pooling in vagina. .ext wwp. no edema. differential anemia, retained products, dysfunctional bleeding from fibroid. anemia, p d/w dr. roque, states dr. randhawa is frontload driver. explained pt will likely require a d & c, will type and cross 2 units, dr. lawson recommend pitocin drip. 06/24/18 02:55 06/24/18 04:56 pt afebrile, normal wbc. will admit . d/w dr. randhawa on way to hospital to evaluate pt. ordered 2 units for transfusion. d/w admitting team. will admit. unable to visualize uterine lining on us day prior. will order ct eval for retained products. d/w admitting team. dr. Joseph <Corrine Li - Last Filed: 06/24/18 04:57> *DC/Admit/Observation/Transfer - Attestations Scribe Attestion: 06/24/18 03:29 Documentation prepared by Laina Narvaez, acting as medical record transcriber for Corrine Li MD. <Laina Narvaez - Last Filed: 06/24/18 03:28> - Discharge Dispostion Decision to Admit order: Yes <Corrine Li - Last Filed: 06/24/18 04:57> Diagnosis at time of Disposition: Vaginal bleeding, Fibroid tumor - Discharge Dispostion Condition at time of disposition: Fair
[2018-06-24] MEDS ORDERED: OXYTOCIN 20 UNITS in 0.9% NS 20 UNIT/1,000 ML INFUS.BAG IV SCH (03:15)
[2018-06-24 03:35] LABS: BASO % 0.5 % (0-2.0); EOS % 1.3 % (0-4.5); HEMATOCRIT 23.5 % (32.4-45.2); HEMOGLOBIN 8.3 GM/dL (10.7-15.3); MCH 29.7 pg (25.7-33.7); MCHC 35.6 g/dl (32.0-36.0); MEAN CELL VOLUME 83.5 fl (80-96); MONO % 4.1 % (3.8-10.2); NEUT % 65.1 % (42.8-82.8); PLATELET COUNT 251 K/MM3 (134-434); RBC 2.81 M/mm3 (3.60-5.2); RDW 14.9 % (11.6-15.6); WHITE BLOOD COUNT 9.8 K/mm3 (4.0-10.0)
[2018-06-24 03:48] LABS: INR 1.13 (0.83-1.09); PROTHROMBIN TIME (PATIENT) 13.3 SEC (9.7-13.0)
[2018-06-24 03:50] LABS: ACTIVATED PTT 24.8 SECONDS (25.2-36.5)
[2018-06-24 03:59] LABS: ALK PHOS 67 U/L (45-117); ANION GAP 7 MMOL/L (8-16); BILIRUBIN,TOTAL 0.4 mg/dL (0.2-1); BLOOD UREA NITROGEN 17 mg/dL (7-18); CALCIUM 8.3 mg/dL (8.5-10.1); CHLORIDE 107 mmol/L (98-107); CO2 24 mmol/L (21-32); CREATININE 1.1 mg/dL (0.55-1.3); GLUCOSE,RANDOM 106 mg/dL (74-106); POTASSIUM 3.6 mmol/L (3.5-5.1); SGOT/AST 14 U/L (15-37); SGPT/ALT 11 U/L (13-61); SODIUM 138 mmol/L (136-145); TOT PROT 6.7 g/dl (6.4-8.2)
--- NOTE | 2018-06-24 05:29 | CON.OBG ---
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 Li Reason for Consultation:: Menorrhagia - History of Present Illness Chief Complaint: 33yo P0 with h/o large fibroids and heavy vaginal bleeding presents back to ER with c/o heavy bleeding. History of Present Illness: Pt was admitted to the Hospital 1-2 days ago for menorrhagia and anemia. She was transfused 2u PRBC and discharged from the hospital last night. Pt is s/p D& E in 2nd trimester on 05/15/18 at [facility] for Trisomy 21. She had light spotting after the surgery and her recent test was negative. The pelvic TVUS/TAUS on 06/13/18 in the office showed endometrial echo 5mm but was limited by large fibroids. The pelvic TAUS on 06/23/18 ay [facility] was unable to visualize endom echo due to fibroids. 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: Alzheimer's, CVA, Dementia, Migraine, Multiple Sclerosis, Peripheral Neuropathy, Parkinson's, Seizure, Syncope, TIA, Vertigo, Other Cardio/Vascular: No: AFIB, Aneurysm, Aortic Insufficiency, Aortic Stenosis, CAD , CHF, Deep Vein Thrombosis, HTN, Hyperlipdemia, LA, Mitral Insufficiency, Mitral Stenosis, Murmur, Pulmonary Hypertension, Other Pulmonary: No: Asthma, Bronchitis, Cancer, COPD, O2 Dependent, Pneumonia, Previously Intubated, Pulmonary Embolus, Pulmonary Fibrosis, Sleep Apnea, Other Gastrointestinal: No: Ascites, Cancer, Constipation, Crohn's Disease, Diverticulitis, Diverticulosis, Esophageal Varices, Gastritis, GERD, GI Bleed, Hemorrhoids, Hiatal Hernia, Inflamatory Bowel Disease, Irritable Bowel Disease, Pancreatitis, Peptic Ulcer Disease, Ulcerative Colitis, Other Hepatobiliary: No: Cirrhosis, Cholelithiasis, Cholecystitis, Choledocholithiasis , Hepatitis A, Hepatitis B, Hepatitis C, Other Renal/: No: Renal Failure, Renal Inusuff, BPH, Cancer, Hematuria, Hemodialysis , Neurogenic Bladder, Renal Calculi, UTI, Other Reproductive: Yes: Fibroids ...LMP: 01/09/18 ...: No ...: 1 Heme/Onc: Yes: Anemia Infectious Disease: No: AIDS, C-Diff, Herpes Zoster, HIV, MRSA, STD's, Tuberculosis, VREF, Other Psych: No: Addictions, Anxiety, Bipolar, Depression, Panic, Psychosis, Schizophrenia, Other Musculoskeletal: No: Bursitis, Chronic low back pain, Hemiparesis, Hemiplegia, Osteoarthritis, Paraplegia, Other Rheumatology: No: Fibromyalgia, Gout, Lupus, Rheumatoid Arthritis, Sarcoidosis, Vasculitis, Other ENT: No: Allergic Rhinitis, Sinusitis, Other Endocrine: Yes: Other (prior h/o ?pheochromocytoma) Dermatology: No: Basal Cell, Cellulitis, Eczema, Melanoma, Psoriasis, Squamous Cell, Other Additional Medical History: Pheochromocytoma - Past Surgical History Additional Surgical History: Adrenal tumor resection at [facility] 2017 (? 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) History of Recent Travel: No Home Medications - Allergies Allergies/Adverse Reactions: Allergies Allergy/AdvReac Type Severity Reaction Status Date / Time No Known Allergies Allergy Verified 06/24/18 02:08 - Home Medications Home Medications: Ambulatory Orders NK [No Known Home Medication] 06/18/16 Family Disease History - Family Disease History Family History: Unremarkable Review of Systems - Review of Systems Constitutional: reports: Weakness Eyes: reports: No Symptoms HENT: reports: No Symptoms Neck: reports: No Symptoms Cardiovascular: reports: No Symptoms Respiratory: reports: No Symptoms Gastrointestinal: reports: No Symptoms Genitourinary: reports: Vaginal Bleeding Breasts: reports: No Symptoms Reported Musculoskeletal: reports: No Symptoms Integumentary: reports: No Symptoms Neurological: reports: Dizziness Endocrine: reports: No Symptoms Hematology/Lymphatic: reports: No Symptoms Psychiatric: reports: No Symptoms Pain Intensity: 3 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-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 TRUCK 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 Vital Signs: Vital Signs Temperature 99.1 F 06/24/18 01:05 Pulse Rate 119 H 06/24/18 01:05 Respiratory Rate 22 H 06/24/18 01:05 Blood Pressure 122/85 06/24/18 01:05 O2 Sat by Pulse Oximetry (%) 100 06/24/18 01:05 Constitutional: Yes: Well Nourished, No Distress, Calm Eyes: Yes: WNL, Conjunctiva Clear, EOM Intact, Other (mild pallor) HENT: Yes: WNL, Atraumatic, Normocephalic Neck: Yes: WNL, Supple, Trachea Midline Cardiovascular: Yes: WNL, Regular Rate and Rhythm Respiratory: Yes: WNL, Regular, CTA Bilaterally Gastrointestinal: Yes: WNL, Normal Bowel Sounds, Soft ...Rectal Exam: Yes: Deferred Renal/: Yes: Vaginal Bleeding Pelvis: Yes: WNL External Genitalia: Yes: Normal Internal Exam Deferred: No Vaginal Exam: Yes: Bleeding ([id number]) Cervix: Yes: Normal, Other (cervical os closed) Uterus: Yes: Enlarged, Lumpy, Mass Adnexa: Not Palpable: Left, Right Edema: No Integumentary: Yes: WNL Neurological: Yes: WNL, Alert, Oriented ...Motor Strength: WNL Psychiatric: Yes: WNL, Alert, Oriented Labs: CBC, BMP 06/24/18 03:25 06/24/18 03:25 Assessment/Plan 33yo with large fibroids and menorrhagia. She does not appear to have retained POC based on labs and US in office on 06/13/18. However a TVUS today cannot be done until morning. Plan to transfuse the patient with another 2u PRBC. Will try IV estrogen to try and stop the bleeding w/o surgical intervention. Possible D&C and/or fibroid embolization can be considered if the bleeding does not stop. I discussed the risks/benefits/alternatives of Tx options and pt agreed.
[2018-06-24] MEDS ORDERED: LACTATED RINGERS SOLUTION 1,000 ML IV SCH (05:30)
--- NOTE | 2018-06-24 05:32 | HP ---
CHIEF COMPLAINT: vaginal bleeding OB-KEEL PRESS OPERATOR: Dr. Naranjo HISTORY OF PRESENT ILLNESS: Patient is a 33 y/o F w/ PMHx fibroids, s/p D&C for non-viable abnormalities on 05/13/18, admitted on 06/23/18 for heavy vaginal bleeding x 1 day with symptomatic anemia to 7.4 Received 2U PRBC and was discharged within 24 hours with Hb 9.2. Returns to ED several hours after d/c for ongoing vaginal bleeding, Hb on re-presentation in 8.3, additionally patient is tachycardic to 119. T&S and 2U PRBCs ordered in ED. Pelvic US and CT a/p pending. OB-KEEL PRESS OPERATOR is aware and will evaluate. ER course was notable for: (1) Hb 9.2 --> 8.3 between d/c and re-admission (2) (3) Recent Travel: PAST MEDICAL HISTORY: As per HPI PAST SURGICAL HISTORY: As per HPI Social History: Smoking: Alcohol: Drugs: Family History: Allergies No Known Allergies Allergy (Verified 06/24/18 02:08) HOME MEDICATIONS: Home Medications Medication Instructions Recorded NK [No Known Home Medication] 06/18/16 REVIEW OF SYSTEMS As per HPI PHYSICAL EXAMINATION Vital Signs - 24 hr 06/24/18 01:05 Temperature 99.1 F Pulse Rate 119 H Respiratory 22 H Rate Blood Pressure 122/85 O2 Sat by Pulse 100 Oximetry (%) GENERAL: A&O x 3, in moderate distress, PE is limited in scope HEAD: NC/AT EYES: EOMI LUNGS: CTA b/l HEART: tachycardic, regular rhythm, no m/r/g ABDOMEN: severe tenderness through lower abdomen EXTREMITIES: 2+ pulses, warm, well-perfused. No calf tenderness. No peripheral edema. NEUROLOGICAL: No focal deficits appreciated Laboratory Results - last 24 hr 06/24/18 06/24/18 06/24/18 03:00 03:25 03:25 WBC 9.8 RBC 2.81 L Hgb 8.3 L Hct 23.5 L MCV 83.5 MCH 29.7 MCHC 35.6 RDW 14.9 Plt Count 251 MPV 8.0 Absolute Neuts (auto) 6.4 Neutrophils % 65.1 Lymphocytes % 29.0 Monocytes % 4.1 Eosinophils % 1.3 Basophils % 0.5 Nucleated RBC % 0 PT with INR 13.30 H INR 1.13 H PTT (Actin FS) 24.8 L Sodium Potassium Chloride Carbon Dioxide Anion Gap BUN Creatinine Creat Clearance w eGFR Random Glucose Calcium Total Bilirubin AST ALT Alkaline Phosphatase Total Protein Albumin Urine HCG, Qual Negative Blood Type Antibody Screen Crossmatch 06/24/18 06/24/18 03:25 03:25 WBC RBC Hgb Hct MCV MCH MCHC RDW Plt Count MPV Absolute Neuts (auto) Neutrophils % Lymphocytes % Monocytes % Eosinophils % Basophils % Nucleated RBC % PT with INR INR PTT (Actin FS) Sodium 138 Potassium 3.6 Chloride 107 Carbon Dioxide 24 Anion Gap 7 L BUN 17 Creatinine 1.1 Creat Clearance w eGFR 56.52 Random Glucose 106 Calcium 8.3 L Total Bilirubin 0.4 AST 14 L ALT 11 L Alkaline Phosphatase 67 Total Protein 6.7 Albumin 3.0 L Urine HCG, Qual Blood Type O POSITIVE Antibody Screen Negative Crossmatch See Detail ASSESSMENT/PLAN: 33 y/o F w/ PMHx fibroids, 6 weeks s/p D&C, presents again with ongoing vaginal bleeding, anemia, lower abdominal tenderness #vaginal bleeding/anemia -T&S and 2U PRBC ordered -definitive treatment is hysterectomy -OBGYN consulted #lower abdominal tenderness -concerning for possible retained conceptus and/or endometritis, however no toxic or septic signs apart from tachycardia -pelvic US and CT a/p pending #FEN -LR @ 100 -monitor and replete lytes as needed -NPO pending possible surgery #PPx -DVT: SCDs, no pharmacologic AC given active bleeding -GI: not indicated #code -full #dispo -admit to obs Visit type - Emergency Visit Emergency Visit: Yes Care time: The patient presented to the Emergency Department on the above date and was hospitalized for further evaluation of their emergent condition. - New Patient This patient is new to me today: Yes Date on this admission: 06/24/18 - Critical Care Critical Care patient: No
[2018-06-24] MEDS ORDERED: ESTROGENS,CONJUGATED 25 MG VIAL IVPB ONE ×3 (06:15→19:00)
--- NOTE | 2018-06-24 07:51 | PN ---
Teaching Attending Note Name of Resident: Dar Jones ATTENDING PHYSICIAN STATEMENT I saw and evaluated the patient. I reviewed the resident's note and discussed the case with the resident. I agree with the resident's findings and plan as documented. SUBJECTIVE: Familiar to me as admitted last night for same issue. Discharged after being seen by OB yesterday and being transfused; please refer to DC summary for discussion of the recent plan from earlier in the day. She comes in again tonight after having a large bloody vaginal output with clots at home. It would not stop and she came back to the ER. OB was called; recommended transfusion to Hct of 30 and placed her on IV estrogen and oxytocin. Further management per OBGYN. Followup TVUS is pending 10 sys ROS done and negative PMH and PSH reviewed and as per chart FH asked and noncontributory Social hx unchanged from last admit OBJECTIVE VS, labs, imaging reviewed NAD, resting in bed in US suite RRR s1/2 no mgr Mild tenderness over suprapubic region around uterus, ND +BS CN2-12 wnl, no fnd Normal mood, euthymic affect Labs show Hb 8.3 that is normocytic, chemistry unremarkable, LFTs unremarkable. HCG is negative US pending ASSESSMENT AND PLAN: Mrs. Sheridan presents with dysfunctional uterine bleeding with a Hb of 8.3 1) Dysfunctional Uterine Bleed -Management per OBGYN; followup US. Admit to med surg. On IV oxytocin and IV estrogen. Appreciate department of natural resources officer input -Trend CBC; xf to goal of 30 for hematocrit. -OP iron studies 2) Fibroids -Management per OBGYN 3) Hypoalbuminemia -Consider checking prealbumin; followup OP. May benefit from nutritional supplementation. 4) Anemia -PRN xf as per specialty services Full Code
--- NOTE | 2018-06-24 10:21 | PN ---
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: SUBJECTIVE: Patient seen and examined at bedside. patient states that she is still bleeding but has not noticed fi she has passed anymore clots- she was also complaining of some cramping earlier and has gone through 1 pad since shes been here . she denies any CP/SOB/N/V fevers or chills OBJECTIVE: Vital Signs Period Temp Pulse Resp BP Sys/Gustafson Pulse Ox Last 24 Hr 98.0 F-99.2 F 81-119 18-22 100-122/57-85 98-100 GENERAL: The patient is awake, alert, and fully oriented, in no acute distress.. EYES: no pallor, no scleral icterus. . NECK: no JVD, no lymphadenopathy LUNGS: CTA B/L; no rales, rhonchi or wheezing HEART: Regular rate and rhythm, S1, S2 without murmur, rub or gallop. ABDOMEN:soft; non-tender, non-distended +BS in all 4 quadrants EXTREMITIES: 2+ pulses, warm, well-perfused, no edema. SKIN: Warm, dry, normal turgor, no rashes or lesions noted Laboratory Results - last 24 hr 06/24/18 06/24/18 06/24/18 03:00 03:25 03:25 WBC 9.8 RBC 2.81 L Hgb 8.3 L Hct 23.5 L MCV 83.5 MCH 29.7 MCHC 35.6 RDW 14.9 Plt Count 251 MPV 8.0 Absolute Neuts (auto) 6.4 Neutrophils % 65.1 Lymphocytes % 29.0 Monocytes % 4.1 Eosinophils % 1.3 Basophils % 0.5 Nucleated RBC % 0 PT with INR 13.30 H INR 1.13 H PTT (Actin FS) 24.8 L Sodium Potassium Chloride Carbon Dioxide Anion Gap BUN Creatinine Creat Clearance w eGFR Random Glucose Calcium Total Bilirubin AST ALT Alkaline Phosphatase Total Protein Albumin Urine HCG, Qual Negative Blood Type Antibody Screen Crossmatch 06/24/18 06/24/18 03:25 03:25 WBC RBC Hgb Hct MCV MCH MCHC RDW Plt Count MPV Absolute Neuts (auto) Neutrophils % Lymphocytes % Monocytes % Eosinophils % Basophils % Nucleated RBC % PT with INR INR PTT (Actin FS) Sodium 138 Potassium 3.6 Chloride 107 Carbon Dioxide 24 Anion Gap 7 L BUN 17 Creatinine 1.1 Creat Clearance w eGFR 56.52 Random Glucose 106 Calcium 8.3 L Total Bilirubin 0.4 AST 14 L ALT 11 L Alkaline Phosphatase 67 Total Protein 6.7 Albumin 3.0 L Urine HCG, Qual Blood Type O POSITIVE Antibody Screen Negative Crossmatch See Detail Active Medications Generic Name Dose Route Start Last Admin Trade Name Deedee PRN Reason Stop Dose Admin Lactated Ringer's 1,000 mls @ 100 mls/hr 06/24/18 05:30 06/24/18 05:57 Lactated Ringers Solution IV 100 mls/hr ASDIR [facility] Administration ASSESSMENT/PLAN: 33 y/o female with PMH of fibroids presents to the ED after a few hours of being discharged with continued complaints of vaginal bleeding and passing clots. #Dysfunctional Uterine Bleeding patients Hgb upon arrival was 8.4 -2 units of PRBCs ordered -CREEL CLERK saw patient last night; gave 20 units of oxytocin in addition to IV estrogen x1 -abdominal/pelvic CT done- pending read -follow up post-transfusion CBC -will receive one more dose of IV estrogen @ 7pm tonight -spoke to Dr. randhawa- will most likely dc patient on control pills F/E/N LR @100mls/hr monitor electrolytes regular diet Problem List - Problems (1) Fibroid tumor Code(s): D21.9 - BENIGN NEOPLASM OF CONNECTIVE AND OTHER SOFT TISSUE, UNSP (2) Anemia Code(s): D64.9 - ANEMIA, UNSPECIFIED Qualifiers: Anemia type: other cause Other causes of anemia: other cause, not classified Qualified Code(s): D64.89 - Other specified anemias Visit type - Emergency Visit Emergency Visit: Yes ED Registration Date: 06/24/18 Care time: The patient presented to the Emergency Department on the above date and was hospitalized for further evaluation of their emergent condition. - New Patient This patient is new to me today: Yes Date on this admission: 06/24/18 - Critical Care Critical Care patient: No
[2018-06-24 11:48] VITALS: BMI 22.2
--- NOTE | 2018-06-24 13:43 | PN ---
Teaching Attending Note Name of Resident: Dina Ray ATTENDING PHYSICIAN STATEMENT I saw and evaluated the patient. I reviewed the resident's note and discussed the case with the resident. I agree with the resident's findings and plan as documented. SUBJECTIVE:c/o feeling lethargic. states last night she started having multiple large blood clots. which stopped temporarily but now worsened after TVUS. continues to have lower abdominal pain. denies CP, SOB, fever, chills, N/V/C/D OBJECTIVE: Last Vital Signs Temp Pulse Resp BP Pulse Ox 98.1 F 87 18 113/62 98 06/24/18 11:37 06/24/18 11:37 06/24/18 11:37 06/24/18 11:37 06/24/18 09:06 General lethargic CV S1 S2 RRR no murmur/rub/gallop Lungs CTA B/L no wheezing/rales/rhonchi ABdomen soft +suprapubic tenderness ND ASSESSMENT AND PLAN: 33yo F with PMH fibroid uterus presented to the ER with heavy vaginal bleeding with clots 1. Dyfunctional uterine bleeding- due to fibroids. received estrogen IV in the ER. bleeding has persisted with large blood clots. received 2 units PRBC yesterday during previous hospital stay. awaiting for blood transfusion now. f/ u TVUS and CT that was done in the ER. NPO for possible intervention. will likely require D&C or fibroid embolization to control bleeding. GLUING MACHINE OPERATOR on board. 2. Acute blood loss anemia- due to vaginal bleeding. 2 units PRBC ordered. awaiting transfusion. will start iron supplement. check post-transfusion CBC 3. DVT ppx- SCD 4. spoke with boyfriend present at bedside. all questions answered. verbalized understanding and agreement with plan
--- NOTE | 2018-06-24 15:12 | PN ---
Progress Note (SOAP) - Subjective Chief Complaint: Vaginal bleeding History of Present Illness: Bleeding is still present but less - Current Medications Current Medications: Active Medications Estrogens Conjugated (Premarin Injection -) 25 mg IVPB ONCE ONE Stop: 06/24/18 14:37 Lactated Ringer's (Lactated Ringers Solution) 1,000 mls @ 100 mls/hr IV ASDIR ADDIE Last Admin: 06/24/18 05:57 Dose: 100 mls/hr - Objective Vital Signs: Vital Signs Temperature 98.3 F 06/24/18 14:00 Pulse Rate 83 06/24/18 14:00 Respiratory Rate 20 06/24/18 14:00 Blood Pressure 104/63 06/24/18 14:00 O2 Sat by Pulse Oximetry (%) 98 06/24/18 09:06 Constitutional: Yes: Well Nourished, No Distress, Calm Eyes: Yes: Conjunctiva Clear, EOM Intact HENT: Yes: Atraumatic, Normocephalic Neck: Yes: Supple, Trachea Midline Cardiovascular: Yes: Regular Rate and Rhythm Respiratory: Yes: Regular, CTA Bilaterally Gastrointestinal: Yes: Normal Bowel Sounds, Soft Genitourinary: Yes: Vaginal Bleeding Musculoskeletal: Yes: WNL Extremities: Yes: WNL Peripheral Pulses WNL: No Edema: No Integumentary: Yes: WNL Neurological: Yes: Alert, Oriented ...Motor Strength: Yes: WNL Psychiatric: Yes: Alert, Oriented Labs Lab Results: CBC, BMP 06/24/18 03:25 06/24/18 03:25 Assessment/Plan 33yo with large fibroids and menorrhagia. Plan to continue IV Premarin q 6hrs x 2-3 doses. I am hoping a 3rd dose may not be necessary. If the bleeding slows down significantly, plan to d/c home on OCP. Plan d/w pt.
--- NOTE | 2018-06-24 15:52 | EKG ---
Test Reason : Blood Pressure : / mmHG Vent. Rate : 080 BPM Atrial Rate : 080 BPM P-R Int : 160 ms QRS Dur : 074 ms QT Int : 374 ms P-R-T Axes : 068 068 056 degrees QTc Int : 431 ms NORMAL SINUS RHYTHM NORMAL ECG NO PREVIOUS ECGS AVAILABLE Confirmed by TITO ALEXANDRA, FLACA ([id number]) on 06/24/2018 3:52:02 PM Referred By: ABIGAIL DRIVER Confirmed By:FLACA FRANCIS MD
[2018-06-24] MEDS ORDERED: ONDANSETRON 4 MG/2 ML VIAL IVPUSH ONE (19:01)
[2018-06-24] MEDS: SODIUM CHLORIDE 1,000 ML IV SCH (19:15)
[2018-06-24 22:50] LABS: HEMATOCRIT 21.9 % (32.4-45.2); HEMOGLOBIN 7.7 GM/dL (10.7-15.3); MCH 30.1 pg (25.7-33.7); MCHC 35.3 g/dl (32.0-36.0); MEAN CELL VOLUME 85.1 fl (80-96); MEAN PLT VOLUME 8.2 fl (7.5-11.1); PLATELET COUNT 183 K/MM3 (134-434); RBC 2.57 M/mm3 (3.60-5.2); RDW 13.8 % (11.6-15.6); WHITE BLOOD COUNT 13.8 K/mm3 (4.0-10.0)
--- NOTE | 2018-06-25 07:55 | PN ---
Progress Note (SOAP) - Subjective History of Present Illness: Patient without complaints. reports bleeding has improved s/p premarin Used 3 pads overnight Current pad since 0600, no bleeding noted No nausea, vomiting, chest pain, shortness of breath - Current Medications Current Medications: Active Medications Sodium Chloride (Normal Saline -) 1,000 mls @ 50 mls/hr IV ASDIR ADDIE Stop: 06/25/18 20:41 Last Admin: 06/24/18 19:15 Dose: 50 mls/hr - Objective Vital Signs: Vital Signs Temperature 98.1 F 06/25/18 06:00 Pulse Rate 80 06/25/18 06:00 Respiratory Rate 18 06/25/18 06:00 Blood Pressure 110/65 06/25/18 06:00 O2 Sat by Pulse Oximetry (%) 98 06/24/18 09:06 Constitutional: Yes: Well Nourished, No Distress, Calm Respiratory: Yes: Regular, CTA Bilaterally Gastrointestinal: Yes: Soft Genitourinary: Yes: Vaginal Bleeding (scant), Other (nontender uterus) Extremities: Yes: WNL Edema: No Integumentary: Yes: WNL Neurological: Yes: Alert, Oriented ...Motor Strength: Yes: WNL Psychiatric: Yes: Alert, Oriented Labs Lab Results: CBC, BMP 06/24/18 22:35 06/24/18 03:25 Assessment/Plan 33 yo HD # 2 admitted for menorrhagia and anemia 1. Vital signs stable, no signs of symptomatic anemia Will f/u AM CBC 2. Bleeding improved s/p premarin Plan for OCP taper if VB stable 3. Will continue to monitor
[2018-06-25 08:17] LABS: MCH 28.8 pg (25.7-33.7); MCHC 33.5 g/dl (32.0-36.0); MEAN CELL VOLUME 86.1 fl (80-96); MEAN PLT VOLUME 8.1 fl (7.5-11.1); PLATELET COUNT 160 K/MM3 (134-434); RBC 2.44 M/mm3 (3.60-5.2); RDW 14.2 % (11.6-15.6); WHITE BLOOD COUNT 10.7 K/mm3 (4.0-10.0)
[2018-06-25] MEDS ORDERED: ONDANSETRON 4 MG TABLET PO PRN (08:29)
[2018-06-25 08:47] LABS: ANION GAP 8 MMOL/L (8-16); BLOOD UREA NITROGEN 14 mg/dL (7-18); CALCIUM 7.4 mg/dL (8.5-10.1); CHLORIDE 110 mmol/L (98-107); CO2 23 mmol/L (21-32); CREATININE 1.1 mg/dL (0.55-1.3); GLUCOSE,RANDOM 77 mg/dL (74-106); MAGNESIUM 1.9 mg/dL (1.8-2.4); PHOSPHOROUS 2.3 mg/dL (2.5-4.9); POTASSIUM 3.9 mmol/L (3.5-5.1); SODIUM 141 mmol/L (136-145)
[2018-06-25] MEDS ORDERED: ESTROGENS,CONJUGATED 25 MG VIAL IVPB ONE ×2 (09:30→19:45)
--- NOTE | 2018-06-25 10:41 | PN ---
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: SUBJECTIVE: Patient seen and examined at bedside- patient went through 3 pads overnight and has not been bleeding since around 6 am. she was slighyl nauseous however denies any vomiting. abdominal pain no chest pain or shortness of breath. her repeat Hgb after the 2 units was 7.0 OBJECTIVE: Vital Signs Period Temp Pulse Resp BP Sys/Gustafson Pulse Ox Last 24 Hr 98.1 F-98.4 F 80-87 18-20 104-113/59-65 GENERAL: The patient is awake, alert, and fully oriented, in no acute distress. EYES: no scleral icterus NECK: no JVD, no lymphadenopathy LUNGS:CTA B/L; no rales, rhonchi or wheezing HEART: Regular rate and rhythm, S1, S2 without murmur, rub or gallop. ABDOMEN: soft; non-tender, non-distended +BS in all 4 quadrants EXTREMITIES: 2+ pulses, warm, well-perfused, no edema. . SKIN: Warm, dry, normal turgor, no rashes or lesions noted Laboratory Results - last 24 hr 06/24/18 06/24/18 06/25/18 03:25 22:35 07:45 WBC 13.8 H RBC 2.57 L Hgb 7.7 L Hct 21.9 L MCV 85.1 MCH 30.1 MCHC 35.3 RDW 13.8 Plt Count 183 D MPV 8.2 Sodium 141 Potassium 3.9 Chloride 110 H Carbon Dioxide 23 Anion Gap 8 BUN 14 Creatinine 1.1 Creat Clearance w eGFR 56.52 Random Glucose 77 Calcium 7.4 L Phosphorus 2.3 L Magnesium 1.9 Blood Type O POSITIVE Antibody Screen Negative Crossmatch See Detail 06/25/18 07:45 WBC 10.7 H RBC 2.44 L Hgb 7.0 L Hct 21.0 L MCV 86.1 MCH 28.8 MCHC 33.5 RDW 14.2 Plt Count 160 MPV 8.1 Sodium Potassium Chloride Carbon Dioxide Anion Gap BUN Creatinine Creat Clearance w eGFR Random Glucose Calcium Phosphorus Magnesium Blood Type Antibody Screen Crossmatch Active Medications Generic Name Dose Route Start Last Admin Trade Name Freq PRN Reason Stop Dose Admin Estrogens Conjugated 25 mg 06/25/18 09:15 Premarin Injection - IVPB 06/25/18 09:16 ONCE ONE Sodium Chloride 1,000 mls @ 50 mls/hr 06/24/18 20:45 06/24/18 19:15 Normal Saline - IV 06/25/18 20:41 50 mls/hr ASDIR ADDIE Administration Ondansetron HCl 4 mg 06/25/18 08:29 Zofran - PO Q8H PRN NAUSEA ASSESSMENT/PLAN: 33 y/o female with PMH of fibroids presents to the ED after a few hours of being discharged with continued complaints of vaginal bleeding and passing clots. #Dysfunctional Uterine Bleeding patients Hgb upon arrival was 8.4; post 2 units repeat was 7/0 -receiving 1 more unit of PRBCs -receiving another dose of estrogen (number 3) -follow up post-transfusion CBC -spoke to Dr. randhawa- will most likely dc patient on control pills -Zofran for nausea F/E/N LR @100mls/hr monitor electrolytes regular diet Problem List - Problems (1) Fibroid tumor Code(s): D21.9 - BENIGN NEOPLASM OF CONNECTIVE AND OTHER SOFT TISSUE, UNSP (2) Anemia Code(s): D64.9 - ANEMIA, UNSPECIFIED Qualifiers: Anemia type: other cause Other causes of anemia: other cause, not classified Qualified Code(s): D64.89 - Other specified anemias Visit type - Emergency Visit Emergency Visit: Yes ED Registration Date: 06/24/18 Care time: The patient presented to the Emergency Department on the above date and was hospitalized for further evaluation of their emergent condition. - New Patient This patient is new to me today: No - Critical Care Critical Care patient: No
--- NOTE | 2018-06-25 14:37 | PN ---
Teaching Attending Note Name of Resident: Dina Ray ATTENDING PHYSICIAN STATEMENT I saw and evaluated the patient. I reviewed the resident's note and discussed the case with the resident. I agree with the resident's findings and plan as documented. SUBJECTIVE:feels much better since waking up this AM, passed several blood clots over night but has just light spotting since then. denies CP, SOB, dizzy, fatigue, N/V/C/d OBJECTIVE: Last Vital Signs Temp Pulse Resp BP Pulse Ox 99.0 F 85 20 112/64 98 06/25/18 09:00 06/25/18 09:00 06/25/18 09:00 06/25/18 09:00 06/24/18 09:06 General NAD CV S1 S2 RRR no murmur/rub/gallop Lungs CTA B/L no wheezing/rales/rhonchi ABdomen soft +suprapubic tenderness ND ASSESSMENT AND PLAN: 33yo F with PMH fibroid uterus presented to the ER with heavy vaginal bleeding with clots 1. Dyfunctional uterine bleeding- due to fibroids. s/p estrogen IV x2, bleeding has slowed down. if continues to have light spotting will plan for OCP on tapering dose as outpatient. pt desires children so goal is to opt on less invasive procedures. GRID MOLDER on board. 2. Acute blood loss anemia- due to vaginal bleeding. s/p 2 units PRBC. this hospital stay., Hgb continues to trend down, will give an additional 2 units and monitor. Goal HCT >30 3. DVT ppx- SCD
[2018-06-25] MEDS: SODIUM CHLORIDE 1,000 ML IV SCH (19:02)
[2018-06-25 20:17] LABS: BASO % 0.2 % (0-2.0); EOS % 0.9 % (0-4.5); HEMATOCRIT 26.3 % (32.4-45.2); HEMOGLOBIN 9.2 GM/dL (10.7-15.3); LYMPH % 29.4 % (8-40); MCH 29.6 pg (25.7-33.7); MCHC 35.2 g/dl (32.0-36.0); MEAN CELL VOLUME 84.2 fl (80-96); MEAN PLT VOLUME 8.2 fl (7.5-11.1); MONO % 4.8 % (3.8-10.2); NEUT % 64.7 % (42.8-82.8); PLATELET COUNT 176 K/MM3 (134-434); RBC 3.12 M/mm3 (3.60-5.2); RDW 14.9 % (11.6-15.6); WHITE BLOOD COUNT 11.2 K/mm3 (4.0-10.0)
[2018-06-26] MEDS ORDERED: ACETAMINOPHEN 325 MG TABLET (FP) PO ONE (02:53)
[2018-06-26] MEDS ORDERED: ACETAMINOPHEN 325 MG TABLET (FP) ONE (02:57)
[2018-06-26] MEDS ORDERED: ESTROGENS,CONJUGATED 25 MG VIAL IVPB ONE (03:00)
--- NOTE | 2018-06-26 08:25 | PN ---
Progress Note (short form) - Note Progress Note: no c/o has vaginal spotting on and off. no active vaginal bleeding, no dizziness , no calf pain Last Vital Signs Temp Pulse Resp BP Pulse Ox 98.3 F 78 18 107/58 L 98 06/26/18 06:44 06/26/18 06:44 06/26/18 06:44 06/26/18 06:44 06/24/18 09:06 CBC, BMP 06/25/18 19:00 06/25/18 07:45 abdomen soft, non tender vagina no active vaginal bleeding lochia minimal no calf tenderness plan d/c home on OCP , follow up office 2 weeks iron, vit if heavy vaginal bleeding call
[2018-06-26 08:30] LABS: BASO % 0.5 % (0-2.0); EOS % 0.8 % (0-4.5); HEMATOCRIT 26.1 % (32.4-45.2); HEMOGLOBIN 8.6 GM/dL (10.7-15.3); MEAN CELL VOLUME 84.8 fl (80-96); MONO % 4.9 % (3.8-10.2); NEUT % 72.8 % (42.8-82.8); PLATELET COUNT 152 K/MM3 (134-434); RBC 3.07 M/mm3 (3.60-5.2); RDW 15.5 % (11.6-15.6); WHITE BLOOD COUNT 11.3 K/mm3 (4.0-10.0)
[2018-06-26 08:58] LABS: ANION GAP 5 MMOL/L (8-16); BLOOD UREA NITROGEN 12 mg/dL (7-18); CALCIUM 7.6 mg/dL (8.5-10.1); CHLORIDE 111 mmol/L (98-107); CO2 24 mmol/L (21-32); GLUCOSE,RANDOM 74 mg/dL (74-106); PHOSPHOROUS 2.9 mg/dL (2.5-4.9); POTASSIUM 4.1 mmol/L (3.5-5.1); SODIUM 140 mmol/L (136-145)
[2018-06-26 09:11] VITALS: BP 109/60; PULSE 79; TEMP 98.1
--- NOTE | 2018-06-26 09:38 | DS ---
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: SUBJECTIVE: Patient seen and examined at bedside- no acute events overnight. patient states she has not passed any clots. she denies any CP/SOB/N/V fevers or chills. repeat Hgb was 8.6 OBJECTIVE: Vital Signs Period Temp Pulse Resp BP Sys/Gustafson Pulse Ox Last 24 Hr 98.1 F-98.8 F 71-87 18-20 107-124/58-76 PHYSICAL EXAM GENERAL: The patient is awake, alert, and fully oriented, in no acute distress. EYES:no scleral icterus. NECK: no JVD no lymphadenopathy LUNGS: CTA B/L; no rales, rhonchi or wheezing HEART: Regular rate and rhythm, S1, S2 without murmur, rub or gallop. ABDOMEN: Soft, nontender, nondistended, normoactive bowel sounds, no guarding, no rebound, no hepatosplenomegaly, no masses. EXTREMITIES: 2+ pulses, warm, well-perfused, no edema. SKIN: Warm, dry, normal turgor, no rashes or lesions noted. LABS Laboratory Results - last 24 hr 06/24/18 06/25/18 06/26/18 03:25 19:00 07:25 WBC 11.2 H RBC 3.12 L Hgb 9.2 L Hct 26.3 L D MCV 84.2 MCH 29.6 MCHC 35.2 RDW 14.9 Plt Count 176 MPV 8.2 Absolute Neuts (auto) 7.2 Neutrophils % 64.7 Lymphocytes % 29.4 Monocytes % 4.8 Eosinophils % 0.9 Basophils % 0.2 Nucleated RBC % 0 Sodium 140 Potassium 4.1 Chloride 111 H Carbon Dioxide 24 Anion Gap 5 L BUN 12 Creatinine 1.0 Creat Clearance w eGFR > 60 Random Glucose 74 Calcium 7.6 L Phosphorus 2.9 Magnesium 2.0 Blood Type O POSITIVE Antibody Screen Negative Crossmatch See Detail 06/26/18 07:45 WBC 11.3 H RBC 3.07 L Hgb 8.6 L Hct 26.1 L MCV 84.8 MCH 28.0 MCHC 33.0 RDW 15.5 Plt Count 152 MPV 8.0 Absolute Neuts (auto) 8.2 H Neutrophils % 72.8 Lymphocytes % 21.0 D Monocytes % 4.9 Eosinophils % 0.8 Basophils % 0.5 Nucleated RBC % 0 Sodium Potassium Chloride Carbon Dioxide Anion Gap BUN Creatinine Creat Clearance w eGFR Random Glucose Calcium Phosphorus Magnesium Blood Type Antibody Screen Crossmatch imaging: transvaginal ultrasound: Transvaginal and transabdominal imaging obtained. The uterus measures 14.6 cm. A large ventral fibroid is identified measuring 9.1 x 8 x 7.6 cm. A smaller pedunculated fibroid is noted measuring 2 x 1.3 x 1.9 cm. Endometrial echocomplex measures 6.9 mm. No free fluid was appreciated in the cul-de-sac. The ovaries were not visualized. HOSPITAL COURSE: Date of Admission:06/24/18 33 y/o female with no PMH presented to the ED with increased vaginal bleeding. Her Hgb on admission was 7.4. she received 2 units yesterday. was seen by Dr Cruz yesterday AM who ordered another dose of estrogen for the patient, in the past 3 days she has received 4 doses of estrogen in addition to 5 units of blood. Her repeat HgB after the 2 units of blood was 8..6 she was seen by Dr. lawson this morning who gave the OK to be discharged and too follow up with him in one week. Date of Discharge: 06/26/18 Minutes to complete discharge: 39 Discharge Summary Reason For Visit: ANEMIA,VAGINAL BLEEDING Current Active Problems Fibroid tumor (Acute) Vaginal bleeding (Acute) Condition: Fair - Instructions Diet, Activity, Other Instructions: You were admitted to the hospital for increased vaginal bleeding. Please resume all of your home medications Please follow up with your primary care physician in one week Please follow up with Dr. Doll within one week Diet There are no dietary restrictions. Eat healthy, high-fiber foods. Drink 6 to 8 glasses of liquid each day. This will assist in keeping your bowels are regular. Pain management You may take Tylenol or acetaminophen or Ibuprofen (for example, Motrin, Advil etc.) from my pain prescription medication is ordered should be taken as prescribed for moderate to severe pain. Call MD or come to the emergency room for any of the following: Severe pain not relieved by medication Fever of 101 or higher Excessive bleeding or drainage on dressing Inability to urinate Referrals: Jesus Doll MD [Staff Physician] - 1 Week Disposition: HOME - Home Medications Comprehensive Discharge Medication List: Ambulatory Orders Ondansetron [Zofran Odt -] 4 mg GT DAILY #30 tab.rapdis 06/25/18 Norethindrone AC-Eth Estradiol [Junel] 1 each PO HS #30 tablet 06/26/18 Problem List - Problems (1) Fibroid tumor Code(s): D21.9 - BENIGN NEOPLASM OF CONNECTIVE AND OTHER SOFT TISSUE, UNSP (2) Anemia Code(s): D64.9 - ANEMIA, UNSPECIFIED Qualifiers: Anemia type: other cause Other causes of anemia: other cause, not classified Qualified Code(s): D64.89 - Other specified anemias This patient is new to me today: No Emergency Visit: Yes ED Registration Date: 06/24/18 Care time: The patient presented to the Emergency Department on the above date and was hospitalized for further evaluation of their emergent condition. Critical Care patient: No - Discharge Referral Referred to [facility] No
--- NOTE | 2018-06-26 10:10 | PN ---
Teaching Attending Note Name of Resident: Dina Ray ATTENDING PHYSICIAN STATEMENT I saw and evaluated the patient. I reviewed the resident's note and discussed the case with the resident. I agree with the resident's findings and plan as documented. SUBJECTIVE:asymptomatic. has light spotting, no blood clots, denies cp, sob, fever, chills, [place], blurred vision OBJECTIVE: Last Vital Signs Temp Pulse Resp BP Pulse Ox 98.1 F 79 20 109/60 98 06/26/18 09:10 06/26/18 09:10 06/26/18 09:10 06/26/18 09:10 06/24/18 09:06 General NAD ABdomen soft NT/ND ASSESSMENT AND PLAN: 33yo F with PMH fibroid uterus presented to the ER with heavy vaginal bleeding with clots 1. Dyfunctional uterine bleeding- due to fibroids. s/p estrogen IV x3, bleeding has slowed down. d/c on OCP taper per OB service. will need to f/u for myomectomy as outpatient. PANTRY STEWARD/STEWARDESS f/u outpatitnet 2. Acute blood loss anemia- due to vaginal bleeding. s/p 4 units PRBC. this hospital stay., Hgb stable. encouraged to take iron supplements at home. told to f/u wtih PMD next week for CBC check. 3. DVT ppx- SCD 4. d/c home
== END 2018-06-26 11:50 | disposition home or self-care (01) | DRG 760 ==
LOC: JER 01:05 → JERBED 04:58 → J3W 11:00
PROVIDERS: ADMIT Internal Medicine; ATTEND Internal Medicine
PROC: 30233N1 Transfusion of Nonautologous Red Blood Cells into Peripheral Vein, Percutaneous Approach (ICD-10-PCS; principal; 2018-06-24)
DX: D25.9 Leiomyoma of uterus, unspecified (principal); D62 Acute posthemorrhagic anemia; E88.09 Other disorders of plasma-protein metabolism, not elsewhere classified
CPT/HCPCS: 36415; 36430; 36511; 74177-TC; 76830-TC; 80048; 80053; 83735; 84100; 84703; 85025; 85027; 85610; 85730; 86850; 86900; 86901; 86922; 93005; 93010; 99282-25; J1410; J7030; P9038; P9058

== ENCOUNTER 2018-07-13 09:59 | Inpatient (IN) | payer BC ==
[2018-07-15 11:46] VITALS: BMI 21.7
[2018-07-16] MEDS ORDERED: PROPOFOL 20 ML ONE (14:21)
[2018-07-16] MEDS ORDERED: MIDAZOLAM HCL 2 MG/2 ML SINGLE DOSE VIAL ONE ×2 (14:21→14:24)
[2018-07-16] MEDS ORDERED: fentaNYL CITRATE 250 MCG/5 ML VIAL ONE (14:21)
[2018-07-16] MEDS ORDERED: ROCURONIUM BROMIDE 50 MG/5 ML VIAL ONE (14:21)
[2018-07-16] MEDS ORDERED: DEXAMETHASONE SOD PHOSPHATE 4 MG/1 ML VIAL ONE ×2 (14:21→15:34)
[2018-07-16] MEDS ORDERED: DEXAMETHASONE SOD PHOSPHATE/PF 10 MG/ML SDV ONE (14:22)
[2018-07-16] MEDS ORDERED: ROPIVACAINE HCL 0.5% 30ML VIAL ONE (14:23)
--- NOTE | 2018-07-16 15:18 | HP ---
History & Physical Update - Physical Physical: No Change - Assessment Assessment: No Change - Plan Plan: No Change (menometrorrhagia, anemia, fibroid uterus for suction curettage , abdominal myomectomy)
[2018-07-16] MEDS ORDERED: ceFAZolin SODIUM 1 GM VIAL IVPB ONE (15:30)
[2018-07-16] MEDS ORDERED: ONDANSETRON 4 MG/2 ML VIAL ONE (15:34)
[2018-07-16] MEDS ORDERED: VASOPRESSIN 20 UNITS/ML VIAL IV ONE ×2 (16:04→16:05)
[2018-07-16] MEDS ORDERED: KETOROLAC TROMETHAMINE 30 MG/1 ML VIAL ONE (16:34)
[2018-07-16] MEDS ORDERED: NEOSTIGMINE METHYLSULFATE 0.5 MG/1 ML - 10 ML MDV ONE (16:39)
[2018-07-16] MEDS ORDERED: GLYCOPYRROLATE 0.2 MG/1 ML VIAL ONE (16:39)
[2018-07-16] MEDS ORDERED: PROMETHAZINE HCL 25 MG/1 ML VIAL IVPUSH PRN (17:53)
[2018-07-16] MEDS ORDERED: LACTATED RINGERS SOLUTION 1,000 ML IV SCH (18:00)
[2018-07-16] MEDS ORDERED: CEFAZOLIN 1 GM/D5W 1 GM/50 ML BAG IVPB SCH (18:00)
[2018-07-16] MEDS ORDERED: HYDROmorphone *PCA* 10MG/50ML DISP.SYRIN PCA SCH (18:00)
[2018-07-16] MEDS: ELECTROLYTE-148 SOLN 1,000 ML IV SCH (20:30)
[2018-07-16] MEDS: ONDANSETRON 4 MG/2 ML VIAL IVPUSH PRN (21:53)
--- NOTE | 2018-07-16 22:50 | OP ---
DATE OF OPERATION: 07/16/2018 PREOPERATIVE DIAGNOSIS: Menometrorrhagia, anemia, large fibroid uterus. POSTOPERATIVE DIAGNOSIS: Menometrorrhagia, anemia, large fibroid uterus. PROCEDURE: Suction dilation and curettage and abdominal myomectomy. SURGEON: Magdiel Rader MD UTILITY GELATIN MAKER: Mina Zhu MD ANESTHESIA: General. ANESTHESIOLOGIST: Tracy Whittaker MD ESTIMATED BLOOD LOSS: 250 mL DESCRIPTION OF PROCEDURE: The patient was taken to the operating room, given adequate general anesthesia, and placed in the dorsal lithotomy position. Examination under anesthesia revealed external genitalia to be normal. Vagina was normal. A small amount of bleeding was seen from the os. Uterus was 14 weeks size, anteverted. Adnexa: No masses were palpable. With a weighted speculum in the vagina, anterior lip of the cervix was grasped with a single-toothed tenaculum. Cervix was gradually dilated with Hegar dilator and suction curette was inserted. The contents were suctioned. Then the Abernathy was inserted. The patient was placed in dorsal supine position for laparotomy. A Pfannenstiel abdominal skin incision was made. Abdominal wall was cut layer by layer until the peritoneum was exposed and incised. Upon entry into the abdominal cavity, the upper abdomen was checked. The bowels were packed away. The uterus appeared to be enlarged at 14 weeks size. Both ovaries were normal. There was a large, single, approximately 12-cm myoma intramural noted with another small myoma of 2 cm next to it. Both tubes and ovaries were normal. The fundal area of the uterus had an incision made over the serosa with cautery. The edge of the serosa was grasped with Allis clamp and a fibroid was dissected from the myometrium. The fibroid had occupied the whole uterus and extended into the intrauterine cavity. Along with removing the base of the fibroid, endometrial cavity was entered and the bleeding points were grasped with a hemostat and tied. Endometrium was repaired with continuous suture of 3-0 Vicryl. The myometrium was brought together with 3 layers of 2-0 Vicryl suture. The uterine wall repair was done. The serosa was closed with a continuous 3-0 Vicryl suture. The pelvic cavity was several times irrigated and no active bleeding was seen. All of the lap pad, sponge, and instrument counts were correct. Then peritoneum was closed with 2-0 Vicryl continuous suture. Muscles were brought together with interrupted suture of 2-0 Vicryl. Then the fascia was closed with 2-0 Vicryl continuous suture, subcutaneous fat with interrupted suture of 2-0 Vicryl, and the skin was closed with 4-0 Biosyn subcuticular continuous suture. Patient tolerated the procedure well and left the OR in good condition. MAGDIEL RADER M.D. [id number]
[2018-07-16] MEDS: CEFAZOLIN 1 GM/D5W 1 GM/50 ML BAG IVPB SCH (23:24)
[2018-07-17] MEDS: CEFAZOLIN 1 GM/D5W 1 GM/50 ML BAG IVPB SCH (08:44)
[2018-07-17 08:46] LABS: HEMATOCRIT 23.1 % (32.4-45.2); HEMOGLOBIN 7.3 GM/dL (10.7-15.3); MCH 27.5 pg (25.7-33.7); MCHC 31.5 g/dl (32.0-36.0); MEAN CELL VOLUME 87.5 fl (80-96); MEAN PLT VOLUME 8.4 fl (7.5-11.1); PLATELET COUNT 253 K/MM3 (134-434); RBC 2.64 M/mm3 (3.60-5.2); WHITE BLOOD COUNT 11.8 K/mm3 (4.0-10.0)
[2018-07-17] MEDS: ONDANSETRON 4 MG/2 ML VIAL IVPUSH PRN (10:50)
--- NOTE | 2018-07-17 10:53 | PN ---
Progress Note (short form) - Note Progress Note: pod 1 s/p abdominal myomectomy hx of anemia , hx of prior blood transfusion has mild incision pain, no vaginal bleeding, no dizziness , CBC, BMP 07/17/18 06:45 Last Vital Signs Temp Pulse Resp BP Pulse Ox 98.6 F 67 16 126/75 100 07/17/18 08:19 18 08:19 07/17/18 08:19 07/17/18 08:19 07/17/18 08:14 abdomen soft, no distension, BS present incision dry, clean no calf tenderness impression pod 1 , anemia , asymptomatic , normal pulse and BP, no active bleeding plan observation repeat cbc in am ambulate iron vit on d/c home in am
[2018-07-17] MEDS: IBUPROFEN 800 MG/8 ML IJ IVPB PRN (12:30)
[2018-07-17] MEDS: oxyCODONE HCL 5 MG TABLET PO PRN (17:56)
[2018-07-17] MEDS ORDERED: PCA PUMP KEY 1 EACH EACH ONE (18:03)
[2018-07-17] MEDS: IBUPROFEN 600 MG TABLET (FP) PO PRN (19:52)
[2018-07-17] MEDS ORDERED: METOCLOPRAMIDE HCL INJECTION 10 MG/2 ML VIAL IVPB PRN (20:27)
[2018-07-17] MEDS ORDERED: ONDANSETRON 4 MG/2 ML VIAL IVPB PRN (20:27)
[2018-07-17] MEDS ORDERED: BISACODYL 10 MG SUPP.RECT RC ONE (20:30)
[2018-07-17] MEDS: SIMETHICONE 80 MG TAB.CHEW (FP) PO PRN (20:46)
[2018-07-18] MEDS: IBUPROFEN 800 MG/8 ML IJ IVPB PRN (01:13)
[2018-07-18 09:28] LABS: BASO % 0.2 % (0-2.0); EOS % 0.3 % (0-4.5); HEMATOCRIT 19.7 % (32.4-45.2); LYMPH % 21.6 % (8-40); MCH 28.8 pg (25.7-33.7); MEAN CELL VOLUME 87.3 fl (80-96); MEAN PLT VOLUME 8.5 fl (7.5-11.1); MONO % 5.7 % (3.8-10.2); NEUT % 72.2 % (42.8-82.8); PLATELET COUNT 203 K/MM3 (134-434); RBC 2.26 M/mm3 (3.60-5.2); RDW 15.3 % (11.6-15.6); WHITE BLOOD COUNT 8.3 K/mm3 (4.0-10.0)
[2018-07-18 10:01] LABS: HEMOGLOBIN 6.5 GM/dL (10.7-15.3)
[2018-07-18 10:31] LABS: ALBUMIN 2.6 g/dl (3.4-5.0); ALK PHOS 50 U/L (45-117); ANION GAP 5 MMOL/L (8-16); BILIRUBIN,TOTAL 0.2 mg/dL (0.2-1); BLOOD UREA NITROGEN 18 mg/dL (7-18); CALCIUM 8.4 mg/dL (8.5-10.1); CHLORIDE 108 mmol/L (98-107); CO2 26 mmol/L (21-32); CREATININE 1.2 mg/dL (0.55-1.3); GLUCOSE,RANDOM 121 mg/dL (74-106); POTASSIUM 4.6 mmol/L (3.5-5.1); SGOT/AST 31 U/L (15-37); SGPT/ALT 14 U/L (13-61); SODIUM 139 mmol/L (136-145); TOT PROT 5.9 g/dl (6.4-8.2)
--- NOTE | 2018-07-18 14:22 | DS ---
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ination Vital Signs: Vital Signs Temperature 98.5 F 07/18/18 12:10 Pulse Rate 91 H 07/18/18 12:10 Respiratory Rate 18 07/18/18 12:10 Blood Pressure 134/77 07/18/18 12:10 O2 Sat by Pulse Oximetry (%) 100 07/17/18 08:14 Constitutional: Yes: Well Nourished, No Distress, Calm Eyes: Yes: WNL HENT: Yes: WNL, Atraumatic, Normocephalic Neck: Yes: WNL, Supple, Trachea Midline Cardiovascular: Yes: WNL, Regular Rate and Rhythm Respiratory: Yes: WNL, Regular, CTA Bilaterally Gastrointestinal: Yes: WNL, Normal Bowel Sounds, Soft Renal/: Yes: WNL Breast(s): Yes: WNL Musculoskeletal: Yes: WNL Extremities: Yes: WNL Integumentary: Yes: WNL Wound/Incision: Yes: Clean/Dry, Well Approximated Neurological: Yes: WNL, Alert, Oriented ...Motor Strength: WNL Labs: CBC, BMP 07/18/18 07:45 07/18/18 07:45 Discharge Summary Reason For Visit: EXCESSIVE BLEEDING IN THE PREMENOPAUSAL PERIOD Fibroid uterus Anemia Procedures: Principal: Myomectomy Other Procedures: Blood transfusion Hospital Course: Unremarcable Condition: Good - Instructions Diet, Activity, Other Instructions: regular diet, no intercourse , follow up office 2 weeks, if pain, heavy vaginal bleeding, fever, dizziness call cont iron , vit Referrals: Magdiel Lieberman MD [Staff Physician] - Disposition: HOME - Home Medications Comprehensive Discharge Medication List: Ambulatory Orders Norethindrone AC-Eth Estradiol [Junel] 1 each PO HS #30 tablet 06/26/18 Ascorbic Acid [Vitamin C] 500 mg PO DAILY 07/15/18 Iron 18 mg PO BID 07/15/18 Ibuprofen [Motrin -] 600 mg PO QID #28 tablet 07/17/18
--- NOTE | 2018-07-18 14:42 | PN ---
Progress Note (short form) - Note Progress Note: 33yo s/p abdominal myomectomy sever anemia - Hb 6.5 She has no palpitations or chest pain, but feels very tiered Will transfuse 2 U PRBC Patient agrees r/b/a discussed
[2018-07-18] MEDS ORDERED: ACETAMINOPHEN 325 MG TABLET (FP) PO ONE (14:45)
[2018-07-18] MEDS ORDERED: diphenhydrAMINE HCL 25 MG CAPSULE (FP) PO ONE (15:00)
[2018-07-18] MEDS: ELECTROLYTE-148 SOLN 1,000 ML IV SCH (20:20)
[2018-07-18] MEDS: SIMETHICONE 80 MG TAB.CHEW (FP) PO PRN (22:07)
[2018-07-18] MEDS: oxyCODONE HCL 5 MG TABLET PO PRN (22:07)
[2018-07-18] MEDS: IBUPROFEN 600 MG TABLET (FP) PO PRN (22:08)
--- NOTE | 2018-07-19 07:44 | PN ---
Progress Note (SOAP) - Subjective History of Present Illness: Patient without acute complaints. Reports tolerating oral intake without nausea or vomiting. Ambulating without dizziness. Denies fevers or chills. Pain well controlled with oral pain medication. Passing flatus. - Current Medications Current Medications: Active Medications Ibuprofen (Motrin -) 600 mg PO Q6H PRN PRN Reason: FEVER Last Admin: 07/18/18 22:08 Dose: 600 mg Oxycodone HCl (Roxicodone -) 5 mg PO Q4H PRN PRN Reason: PAIN LEVEL 1-5 Last Admin: 07/18/18 22:07 Dose: 5 mg Simethicone (Mylicon -) 80 mg PO Q4H PRN PRN Reason: GAS Last Admin: 07/18/18 22:07 Dose: 80 mg - Objective Vital Signs: Vital Signs Temperature 98.2 F 07/19/18 06:00 Pulse Rate 72 07/19/18 06:00 Respiratory Rate 18 07/19/18 06:00 Blood Pressure 133/94 07/19/18 06:00 O2 Sat by Pulse Oximetry (%) 100 07/17/18 08:14 Constitutional: Yes: Well Nourished, No Distress, Calm Cardiovascular: Yes: Regular Rate and Rhythm Respiratory: Yes: Regular, CTA Bilaterally Gastrointestinal: Yes: Normal Bowel Sounds, Soft, Other (incision - clean / dry / inact) Musculoskeletal: Yes: WNL Extremities: Yes: WNL Peripheral Pulses WNL: Yes Edema: No Integumentary: Yes: WNL Wound/Incision: Yes: Clean/Dry, Well Approximated ...Motor Strength: Yes: WNL Psychiatric: Yes: Alert, Oriented Labs Lab Results: CBC, BMP 07/18/18 07:45 07/18/18 07:45 Assessment/Plan 33 yo POD #3 s/p myomectomy, symptomatic anemia, s/p 2 uPRBC 1. VSS, asymptomatic posttransfusion CBC pending 2. Encouraged to call for: heavy bleeding, incisional discharge, fevers, chills , chest pain, shorntess of breath, no BM. 3. RTO 1 wk for incision check
[2018-07-19 08:21] LABS: HEMATOCRIT 24.6 % (32.4-45.2); MCH 28.6 pg (25.7-33.7); MCHC 32.7 g/dl (32.0-36.0); MEAN CELL VOLUME 87.5 fl (80-96); MEAN PLT VOLUME 8.4 fl (7.5-11.1); PLATELET COUNT 184 K/MM3 (134-434); RBC 2.81 M/mm3 (3.60-5.2); RDW 15.1 % (11.6-15.6); WHITE BLOOD COUNT 7.2 K/mm3 (4.0-10.0)
[2018-07-19 09:50] VITALS: BP 141/99; PULSE 73; TEMP 97.8
--- NOTE | 2018-07-22 15:51 | PATH ---
Surgical Pathology Report Patient Name: ROLAND JENKINS [facility]. Rec. 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 Specimen(s) Received A: ENDOMETRIAL CURETTINGS B: FIBROID Clinical History Excessive bleeding Final Diagnosis A. ENDOMETRIAL CURETTINGS, SUCTION DILATION AND CURETTAGE: FRAGMENTS OF ENDOMETRIUM WITH DECIDUALIZED STROMA AND BREAKDOWN, LOWER UTERINE SEGMENT, AND BENIGN CERVICAL TISSUE ADMIXED WITH BLOOD CLOTS. B. FIBROIDS X2, ABDOMINAL MYOMECTOMY: LEIOMYOMA WITH FOCAL DEGENERATIVE CHANGES. Electronically Signed Марина Valera M.D. Gross Description A. Received in formalin labeled "endometrial curettings," is a 13.5 x 10.0 x 0.6 cm aggregate of red-brown soft tissue fragments admixed with blood clot. The formalin and filtered and the specimen is entirely submitted in 21 cassettes. B. Received in formalin labeled "fibroids x2," is a 380 g aggregate of 2 alas, rubbery nodules, consistent with fibroids. The fibroids measure 2.0 and 9.0 cm in greatest dimension. The cut surface of the smaller nodule displays alas, firm to rubbery parenchyma with whorled architecture. No areas of hemorrhage or necrosis are identified. Sectioning of the larger fibroid displays alas brown, degenerative parenchyma. F[employer] Picker sections are submitted in 5 cassettes as follows: 1-smaller fibroid; 2-5-larger fibroid. 07/17/2018 [facility]07/17/2018
== END 2018-07-19 12:15 | disposition home or self-care (01) | DRG 743 ==
LOC: JSAMEDAYSX 07-16 13:13 → J3W 07-16 21:04
PROVIDERS: ADMIT Obstetrics & Gynecology; ATTEND Obstetrics & Gynecology
PROC: 0UB90ZZ Excision of Uterus, Open Approach (ICD-10-PCS; principal; 2018-07-16 14:30)
PROC: 30233N1 Transfusion of Nonautologous Red Blood Cells into Peripheral Vein, Percutaneous Approach (ICD-10-PCS; 2018-07-18)
DX: D25.1 Intramural leiomyoma of uterus (principal); N92.1 Excessive and frequent menstruation with irregular cycle; D64.9 Anemia, unspecified
CPT/HCPCS: 36415; 36430; 80053; 82947; 82962; 84702; 85025; 85027; 86850; 86900; 86901; 86922; 88305-TC; 94010; 94760; P9038; P9058

== ENCOUNTER 2021-08-24 06:15 | Inpatient (IN) | payer BC ==
[2021-08-24] MEDS: ELECTROLYTE-148 SOLN 1,000 ML IV SCH ×2 (06:45→11:14)
[2021-08-24 07:03] VITALS: BMI 30.9
[2021-08-24] MEDS ORDERED: CITRIC ACID/SODIUM CITRATE 30 ML UNIT-DOSE CUP PO ONE (07:09)
[2021-08-24] MEDS ORDERED: ePHEDrine SULFATE 50 MG/1 ML AMPULE ONE ×2 (07:40→08:31)
[2021-08-24] MEDS ORDERED: ONDANSETRON 4 MG/2 ML VIAL ONE (07:42)
[2021-08-24] MEDS ORDERED: KETOROLAC TROMETHAMINE 30 MG/1 ML VIAL ONE (07:42)
[2021-08-24] MEDS ORDERED: ceFAZolin SODIUM 1 GM VIAL ONE ×2 (07:42→10:22)
[2021-08-24] MEDS ORDERED: OXYTOCIN 10 UNITS/ML VIAL ONE (07:42)
[2021-08-24] MEDS ORDERED: OXYTOCIN 30 UNITS in 0.9% NS 30 UNIT/500 ML INFUS.BAG IVPB SCH (08:00)
[2021-08-24] MEDS ORDERED: PROPOFOL 20 ML ONE (08:57)
[2021-08-24] MEDS ORDERED: SUCCINYLCHOLINE CHLORIDE 200 MG/10 ML SYRINGE ONE (08:59)
[2021-08-24 09:15] LABS: CORD HCO3 24.8 mmHg (20-29); CORD pH 7.288 (7.14-7.44)
[2021-08-24 09:25] LABS: CORD BASE EXCESS -3.3 mmol/L (0-2); CORD HCO3 22.9 mmHg (20-29); CORD PCO2 45.3 mmHg (30-78); CORD pH 7.321 (7.14-7.44)
[2021-08-24] MEDS ORDERED: KETAMINE HCL 500 MG/10 ML VIAL ONE (10:09)
[2021-08-24] MEDS ORDERED: MIDAZOLAM HCL 2 MG/2 ML SINGLE DOSE VIAL ONE (10:09)
[2021-08-24] MEDS ORDERED: ACETAMINOPHEN 325 MG TABLET (FP) PO PRN (10:53)
[2021-08-24] MEDS ORDERED: METHYLERGONOVINE MALEATE 0.2 MG/1 ML AMP IM PRN (10:53)
[2021-08-24] MEDS ORDERED: OXYTOCIN 20 UNITS in 0.9% NS 1,000 ML IV SCH (11:00)
[2021-08-24 11:21] LABS: HEMATOCRIT 25.4 % (32.4-45.2); HEMOGLOBIN 8.3 GM/dL (10.7-15.3); MCH 29.1 pg (25.7-33.7); MCHC 32.7 g/dl (32.0-36.0); MEAN CELL VOLUME 88.8 fl (80-96); MEAN PLT VOLUME 8.4 fl (7.5-11.1); PLATELET COUNT 87 10^3/uL (134-434); RBC 2.86 M/mm3 (3.60-5.2); RDW 14.6 % (11.6-15.6); WHITE BLOOD COUNT 9.7 K/mm3 (4.0-10.0)
[2021-08-24 12:20] VITALS: O2SAT 100
[2021-08-24] MEDS ORDERED: ACETAMINOPHEN 1000 MG/100 ML BAG IVPB ONE (12:23)
[2021-08-24 12:24] LABS: INR 1.08 (0.83-1.09); PROTHROMBIN TIME (PATIENT) 12.4 SEC (9.7-13.0)
[2021-08-24 12:37] LABS: BLOOD UREA NITROGEN 12.5 mg/dL (7-18); CALCIUM 8.9 mg/dL (8.5-10.1)
[2021-08-24 12:41] LABS: CREATININE 0.9 mg/dL (0.55-1.3)
[2021-08-24 18:14] LABS: HEMATOCRIT 26.4 % (32.4-45.2); HEMOGLOBIN 9.1 GM/dL (10.7-15.3); MCH 29.7 pg (25.7-33.7); MCHC 34.4 g/dl (32.0-36.0); MEAN CELL VOLUME 86.4 fl (80-96); MEAN PLT VOLUME 8.1 fl (7.5-11.1); PLATELET COUNT 105 10^3/uL (134-434); RBC 3.06 M/mm3 (3.60-5.2); RDW 15.1 % (11.6-15.6); WHITE BLOOD COUNT 9.2 K/mm3 (4.0-10.0)
[2021-08-24 18:21] LABS: INR 0.97 (0.83-1.09); PROTHROMBIN TIME (PATIENT) 11.2 SEC (9.7-13.0)
[2021-08-24 18:32] LABS: ALBUMIN 2.2 g/dl (3.4-5.0); BLOOD UREA NITROGEN 12.4 mg/dL (7-18); CALCIUM 8.8 mg/dL (8.5-10.1)
[2021-08-24 18:35] LABS: CREATININE 0.9 mg/dL (0.55-1.3)
[2021-08-24 18:37] LABS: BILIRUBIN,TOTAL 0.4 mg/dL (0.2-1); TOT PROT 4.5 g/dl (6.4-8.2)
[2021-08-24] MEDS ORDERED: ceFAZolin 2 GRAM PREMIX BAG IVPB SCH (20:00)
[2021-08-24] MEDS: CEFAZOLIN IVPB SCH (21:34)
[2021-08-24] MEDS: SODIUM CHLORIDE IVPB SCH (21:34)
[2021-08-24] MEDS ORDERED: oxyCODONE HCL 5 MG TABLET PO PRN ×2 (22:54)
[2021-08-25] MEDS: SODIUM CHLORIDE IVPB SCH ×2 (02:32→10:45)
[2021-08-25] MEDS: CEFAZOLIN IVPB SCH ×2 (02:32→10:45)
[2021-08-25] MEDS: ELECTROLYTE-148 SOLN 1,000 ML IV SCH (02:33)
[2021-08-25] MEDS: IBUPROFEN 600 MG TABLET (FP) PO PRN ×2 (04:43→20:22)
[2021-08-25] MEDS: SIMETHICONE 80 MG TAB.CHEW (FP) PO PRN ×2 (04:44→20:23)
[2021-08-25] MEDS: ENOXAPARIN NA (PORCINE) 40 MG/0.4 ML DISP.SYRIN SQ SCH (09:26)
[2021-08-25 10:03] LABS: BASO % 0.1 % (0-2.0); EOS % 0.6 % (0-4.5); HEMATOCRIT 24.4 % (32.4-45.2); HEMOGLOBIN 8.4 GM/dL (10.7-15.3); MCH 29.9 pg (25.7-33.7); MCHC 34.5 g/dl (32.0-36.0); MEAN CELL VOLUME 86.7 fl (80-96); MONO % 4.9 % (3.8-10.2); NEUT % 77.4 % (42.8-82.8); PLATELET COUNT 111 10^3/uL (134-434); RBC 2.82 M/mm3 (3.60-5.2); RDW 15.6 % (11.6-15.6); WHITE BLOOD COUNT 8.9 K/mm3 (4.0-10.0)
[2021-08-25] MEDS ORDERED: BISACODYL 10 MG SUPP.RECT RC PRN (10:54)
[2021-08-25] MEDS ORDERED: IRON SUCROSE INJECTION 200 MG in SODIUM CHLORIDE 90 ML IVPB ONE (17:00)
[2021-08-26] MEDS: IBUPROFEN 600 MG TABLET (FP) PO PRN ×2 (01:41→22:41)
[2021-08-26] MEDS: SIMETHICONE 80 MG TAB.CHEW (FP) PO PRN ×4 (01:41→23:42)
[2021-08-26 08:07] LABS: HEMOGLOBIN 8.3 GM/dL (10.7-15.3); MCH 29.9 pg (25.7-33.7); MCHC 34.4 g/dl (32.0-36.0); MEAN PLT VOLUME 8.4 fl (7.5-11.1); PLATELET COUNT 122 10^3/uL (134-434); RBC 2.76 M/mm3 (3.60-5.2); RDW 15.5 % (11.6-15.6); WHITE BLOOD COUNT 8.9 K/mm3 (4.0-10.0)
[2021-08-26] MEDS: ENOXAPARIN NA (PORCINE) 40 MG/0.4 ML DISP.SYRIN SQ SCH (09:19)
[2021-08-27] MEDS: ELECTROLYTE-148 SOLN 1,000 ML IV SCH (07:20)
[2021-08-27 08:21] LABS: BASO % 0.2 % (0-2.0); EOS % 2.7 % (0-4.5); HEMATOCRIT 24.4 % (32.4-45.2); HEMOGLOBIN 8.3 GM/dL (10.7-15.3); LYMPH % 28.6 % (8-40); MCH 29.9 pg (25.7-33.7); MCHC 34.2 g/dl (32.0-36.0); MEAN CELL VOLUME 87.6 fl (80-96); MEAN PLT VOLUME 7.7 fl (7.5-11.1); MONO % 6.1 % (3.8-10.2); NEUT % 62.4 % (42.8-82.8); PLATELET COUNT 147 10^3/uL (134-434); RBC 2.79 M/mm3 (3.60-5.2); RDW 15.3 % (11.6-15.6); WHITE BLOOD COUNT 8.3 K/mm3 (4.0-10.0)
[2021-08-27] MEDS: ENOXAPARIN NA (PORCINE) 40 MG/0.4 ML DISP.SYRIN SQ SCH (09:51)
[2021-08-28] MEDS: IBUPROFEN 600 MG TABLET (FP) PO PRN (03:41)
[2021-08-28] MEDS: SIMETHICONE 80 MG TAB.CHEW (FP) PO PRN (03:41)
[2021-08-28] MEDS: ENOXAPARIN NA (PORCINE) 40 MG/0.4 ML DISP.SYRIN SQ SCH (09:36)
[2021-08-28 10:47] VITALS: BP 135/86; PULSE 74; TEMP 97.3
== END 2021-08-28 13:05 | disposition home or self-care (01) | DRG 785 ==
LOC: JLDR 06:15 → J3W 12:30
PROVIDERS: ADMIT Obstetrics & Gynecology; ATTEND Obstetrics & Gynecology
PROC: 0UB70ZZ Excision of Bilateral Fallopian Tubes, Open Approach (ICD-10-PCS; 2021-08-24)
PROC: 0DNW0ZZ Release Peritoneum, Open Approach (ICD-10-PCS; 2021-08-24)
PROC: 0UT90ZL Resection of Uterus, Supracervical, Open Approach (ICD-10-PCS; 2021-08-24)
PROC: 0UB20ZZ Excision of Bilateral Ovaries, Open Approach (ICD-10-PCS; 2021-08-24)
PROC: 0WJJ0ZZ Inspection of Pelvic Cavity, Open Approach (ICD-10-PCS; 2021-08-24)
PROC: 30233N1 Transfusion of Nonautologous Red Blood Cells into Peripheral Vein, Percutaneous Approach (ICD-10-PCS; 2021-08-24)
PROC: 30233L1 Transfusion of Nonautologous Fresh Plasma into Peripheral Vein, Percutaneous Approach (ICD-10-PCS; 2021-08-24)
PROC: 30233K1 Transfusion of Nonautologous Frozen Plasma into Peripheral Vein, Percutaneous Approach (ICD-10-PCS; 2021-08-24)
PROC: 30233R1 Transfusion of Nonautologous Platelets into Peripheral Vein, Percutaneous Approach (ICD-10-PCS; 2021-08-24)
PROC: 10D00Z1 Extraction of Products of Conception, Low, Open Approach (ICD-10-PCS; principal; 2021-08-24 08:00)
DX: O34.211 Maternal care for low transverse scar from previous cesarean delivery (principal); O34.13 Maternal care for benign tumor of corpus uteri, third trimester; D25.0 Submucous leiomyoma of uterus; O99.013 Anemia complicating pregnancy, third trimester; D64.9 Anemia, unspecified; O99.891 Other specified diseases and conditions complicating pregnancy; N73.6 Female pelvic peritoneal adhesions (postinfective); N85.8 Other specified noninflammatory disorders of uterus; Z3A.37 37 weeks gestation of pregnancy; O46.8X3 Other antepartum hemorrhage, third trimester; Z37.0 Single live birth
CPT/HCPCS: 36415; 36430; 36511; 36600; 80048; 80053; 82803; 85025; 85027; 85384; 85610; 85730; 88305-TC; 88307-TC; 94760; J1756; P9017; P9034; P9038; P9051; P9058